=== PATIENT | female | born 1945 | race Caucasian/White ===

== ENCOUNTER 2021-09-17 15:18 | Inpatient (IN) ==
--- NOTE | 2021-09-17 15:37 | Emergency Department Note ---
Impression & Plan Flank Pain, Renal colic, Hydronephrosis, Hypokalemia ED Provider Note NAME: PRAVEEN WINKLER AGE: 76 SEX: F : 1945 ARRIVES VIA: Walk-In INFORMANT: Patient ED PROVIDER(S): Roger Long DO CHIEF COMPLAINT: flank pain with nausea and vomiting HPI: Patient is a 76-year-old female who presents ER for right flank pain. She notes this has been present for just about a week. Started last Sunday. Describes the pain is a 10 out of 10 and sharp stabbing associated with nausea and vomiting. She had a CT done which showed a 5 mm distal right ureteral stone several days ago. She was prescribed oxycodone. She notes the pain is so bad that she cannot keep anything down. She had previous stones before that had to be removed via surgery. Denies any fevers. No chest pain or shortness of breath. No dysuria urgency or frequency. No other exacerbating or remitting factors. ROS: See above HPI for pertinent positives & negatives. A total of 10 systems reviewed and were otherwise negative. PAST MEDICAL HISTORY:See Below PAST SURGICAL HISTORY:See Below FAMILY HISTORY:See Below SOCIAL HISTORY:See Below HOME MEDICATIONS:See Below ALLERGIES:See Below VITALS:See Below PHYSICAL EXAMINATION: GENERAL: Lying in bed moderate distress holding right side EYE EXAM: normal conjunctiva. OROPHARYNX: Dry mucous membranes NECK: supple, no nuchal rigidity, no adenopathy, non-tender LUNGS: Clear to auscultation. Normal chest wall mechanics HEART: no murmurs, S1 normal and S2 normal ABDOMEN: abdomen soft, non-tender, normo-active bowel sounds, no masses, no rebound or guarding. BACK: Back is symmetrical on inspection and there is no deformity, no midline tenderness, no CVA tenderness. UPPER EXTREMITIES: upper extremities are grossly normal. LOWER EXTREMITIES: No pitting edema. NEURO EXAM: Normal sensorium, cranial nerves II-XII grossly intact, normal spee ch, no gross weakness of arms, no gross weakness of legs. MEDICAL DECISION MAKING: Patient is a 76-year-old female who presents ER for above-stated complaint. IV was established blood was obtained. Labs show no significant leukocytosis or anemia. BMP with mild hypokalemia 3.2. LFTs bilirubin and lipase is unremarkable. UA with no whites but leuks and nitrites and +4 bacteria. Was clearly contaminated but with the known 5 mm stone patient was given a dose of Rocephin to be on the safe side. She was given IV morphine and Zofran. As this is her third visit and she is having worsening pain unable to keep anything down did elect discussed with hospitalist for further evaluation. KUB and ultrasound show worsening hydro and that the stone has likely not change positions. Discussed with Otto Graf for further evaluation. Triage Nursing notes reviewed. Limited review of prior medical records performed Vital Signs: reviewed and remarkable for no significant abnormalities Differential diagnosis: Differential diagnoses includes but is not limited to gastritis, peptic ulcer disease, GERD, gallbladder disease, pancreatitis, small bowel obstruction, acute coronary syndrome, pericarditis, ischemic bowel, irritable bowel disease, irritable bowel syndrome, appendicitis, diverticulitis, malignancy, hernia, urinary tract infection, torsion, perforation, trauma, infectious. ER treatment provided: See below Diagnostics interpreted by me: ECG: none Cardiac Monitoring: An order was placed for continuous cardiac monitoring. The monitor shows a rate of 92 with sinus rhythm. Laboratory studies: As stated above and show below. Imaging studies: Ultrasound shows worsening hydro- KUB shows stone has likely not change positions Consultation(s): Discussed with Otto Graf for further evaluation Procedures: none Critical Care: None Past Med/Surg History Medical History No pertinent past medical history Surgical History History of appendectomy Social History Smoking Status: Never smoker Preferred Language: Estonian Feels Safe at Home: Yes Allergies Allergies Allergy/AdvReac Type Severity Reaction Status Date / Time No Known Allergies Allergy Verified 09/17/21 15:50 Home Meds Home Medications Medication Instructions Recorded Confirmed ondansetron 4 mg disintegrating 4 mg PO Q8H PRN 09/17/21 09/17/21 tablet Previous Rx's Medication Instructions Recorded oxycodone 5 mg tablet 5 mg PO Q6H PRN #10 tab 09/16/21 Results & Data (ED) Vital Signs Vital Signs - 24 hr 09/17/21 15:21 09/17/21 16:08 09/17/21 16:34 Temperature 36.8 C Temperature Source Temporal Artery Scan Oral Pulse Rate 68 66 Pulse Rate from SpO2 Sensor 65 Respiratory Rate 18 19 Respiratory Effort / Characteristics Non-Labored Respiratory Depth Normal Blood Pressure 141/81 H Blood Pressure Mean 101 Pulse Oximetry 98 98 Oxygen Delivery Method Room Air Room Air Sepsis Recent Fever Within 48 Hours No Sepsis New/Unexplained Change in Mental Status No Sepsis Action Taken by Nursing No Action Required 09/17/21 17:00 Temperature Temperature Source Pulse Rate 70 Pulse Rate from SpO2 Sensor Respiratory Rate Respiratory Effort / Characteristics Respiratory Depth Blood Pressure Blood Pressure Mean Pulse Oximetry Oxygen Delivery Method Sepsis Recent Fever Within 48 Hours Sepsis New/Unexplained Change in Mental Status Sepsis Action Taken by Nursing Laboratory Data Result diagrams: 09/17/21 15:48 09/17/21 15:48 Lab Results 09/17/21 09/17/21 09/17/21 Range/Units 15:48 15:48 15:48 WBC 6.57 (4.8-10.8) K/uL RBC 4.23 (4.2-5.4) M/uL Hgb 13.0 (12.0-16.0) g/dL Hct 39.0 (37-47) % MCV 92.2 (80-100) fL MCH 30.7 (25-34) pg MCHC 33.3 (32-36) g/dL RDW Std Deviation 43.9 (36.4-46.3) fL RDW Coeff of So 13.2 (11.5-14.5) % Plt Count 186 (130-400) K/uL MPV 10.1 (7.4-10.4) fL Immature Gran % (Auto) 0.2 % Neut % (Auto) 73.1 % Lymph % (Auto) 18.1 % [place] % (Auto) 7.2 % Eos % (Auto) 1.1 % Baso % (Auto) 0.3 % Neut # (Auto) 4.81 (1.4-6.5) K/uL Lymph # (Auto) 1.19 L (1.2-3.4) K/uL [place] # (Auto) 0.47 (0.11-0.59) K/uL Eos # (Auto) 0.07 (0-0.5) K/uL Baso # (Auto) 0.02 (0-0.2) K/uL Immature Gran # (Auto) 0.01 (0.00-0.02) K/uL Sodium 140 (136-145) mmol/L Potassium 3.2 L (3.5-5.1) mmol/L Chloride 104 (98-107) mmol/L Carbon Dioxide 27 (21-32) mmol/L Anion Gap 9 (3-11) BUN 19 (6-23) mg/dl Creatinine 1.02 (0.6-1.2) mg/dl Est Cr Clr Drug Dosing 43.3 ml/min Est GFR ( Amer) 62.3 ml/min Est GFR (Non-Af Amer) 53.8 ml/min BUN/Creatinine Ratio 18.6 (10-20) Glucose 114 H (70-99(Fasting)) mg/dl Calcium 9.1 (8.5-10.1) mg/dl Total Bilirubin 0.6 (0.2-1.0) mg/dl AST 23 (13-39) U/L ALT 17 (7-52) U/L Alkaline Phosphatase 69 (34-104) U/L Total Protein 6.2 (6.0-8.3) gm/dl Albumin 3.9 (3.4-5.0) gm/dl Globulin 2.3 L (2.5-4.0) gm/dl Albumin/Globulin Ratio 1.7 (0.9-2) Lipase 37 (11-82) U/L Urine Color Yellow Urine Appearance Clear (Clear) Urine pH 7.0 (4.5-7.5) Ur Specific [place] 1.016 (1.000-1.030) Urine Protein Negative (Negative) Urine Glucose (UA) Negative (Negative) Urine Ketones Trace H (Negative) Urine Blood 3+ H (Negative) Urine Nitrite Positive A (Negative) Urine Bilirubin Negative (Negative) Urine Urobilinogen Negative (Negative) Ur Leukocyte Esterase 1+ H (Negative) Urine WBC (Auto) 1-5 (0-5) /hpf Urine RBC (Auto) >30 H (0-4) /hpf U Hyaline Cast (Auto) 1-5 (0-5) /lpf U Epithel Cells (Auto) 10-20 H (0-5) /lpf Urine Bacteria (Auto) 4+ H (Negative) Administered Medications Discontinued Medications Sodium Chloride (Nss 1000ml) 1,000 mls @ 999 mls/hr IV .Q1H1M ONE Stop: 09/17/21 16:38 Last Infusion: 09/17/21 17:15 Dose: 0 mls/hr Documented by: [id number] Admin: 09/17/21 15:58 Dose: 999 mls/hr Documented by: [id number] Ceftriaxone Sodium (Rocephin) 1,000 mg in 50 mls @ 100 mls/hr IV NOW STA Stop: 09/17/21 17:17 Last Infusion: 09/17/21 17:51 Dose: 0 mls/hr Documented by: [id number] Admin: 09/17/21 17:04 Dose: 100 mls/hr Documented by: [id number] Morphine Sulfate (Morphine Sulfate 10 Mg/Ml Carp/Vial) 6 mg IV NOW STA Stop: 09/17/21 16:00 Last Admin: 09/17/21 16:17 Dose: 6 mg Documented by: [id number] Ondansetron HCl (Ondansetron Inj 2 Mg/Ml 2 Ml Vial) 4 mg IV NOW STA Stop: 09/17/21 15:39 Last Admin: 09/17/21 15:57 Dose: 4 mg Documented by: [id number] Potassium Chloride (Potassium Chloride 10 Meq Tabcr) 40 meq PO NOW STA Stop: 09/17/21 17:06 Last Admin: 09/17/21 17:57 Dose: 40 meq Documented by: [id number] Imaging Data Radiologist's Impression: KUB X-Ray 09/17/21 15:37 KUB HISTORY: Follow up study in a patient with history of kidney stones stone COMPARISON: CT abdomen and pelvis 09/16/2021 FINDINGS: Nonobstructive bowel gas pattern. Right renal calculi again noted measuring up to 4 to 5 mm. Ill-defined 5 mm radiodensity of the right hemipelvis. Study limited secondary to obscuring bowel gas. No pneumoperitoneum or pneumatosis. No fracture. IMPRESSION: 1. 5 mm radiodensity of the right hemipelvis may correlate with unchanged po sitioning of the recently noted distal right ureteral calculus. Limited visualization of the pelvis secondary to overlying bowel gas. 2. Right nephrolithiasis. ACT 112: Negative or not required by law. The above report was generated using voice recognition software. It may contain grammatical, syntax or spelling errors. Electronically signed by: Reagan Ng M.D. 09/17/2021 4:53 PM Renal Ultrasound 09/17/21 15:37 US renal/blad retro comp HISTORY: 76 years-old Female kid stone follow-up study in a patient with kidney stones. COMPARISON: CT abdomen and pelvis 09/16/2021 TECHNIQUE: Multiple real-time images of the kidneys and urinary bladder were obtained assessing grayscale appearance and color flow FINDINGS: Right kidney measures 9.7 cm in length. Mild to moderate right-sided hydroureteronephrosis. Nonobstructing calculi of the right kidney measure up to 4 mm. The left kidney measures 9.0 cm in length. No left-sided renal calculi or hydronephrosis. Unremarkable urinary bladder. Only the left ureteral jet identified. IMPRESSION: 1. Mild to moderate right-sided hydroureteronephrosis has likely progressed from yesterday's study. 2. Nonobstructing right nephrolithiasis. 3. Unremarkable sonographic appearance of the left kidney. ACT 112: Negative or not required by law. The above report was generated using voice recognition software. It may contain grammatical, syntax or spelling errors. Electronically signed by: Reagan Ng M.D. 09/17/2021 5:10 PM Discharge Plan Visit Data Chief Complaint: Kidney Stone Stated Complaint: KIDNEY STONE ED Provider: Roger Long Discharge Problem: Flank Pain, Renal colic, Hydronephrosis, Hypokalemia Patient Disposition: Admitted As Inpatient Discharge Instructions Interventions: ED Discharge Assessment Last Done: 09/17/21 18:26 Discharge Problem: Hydronephrosis Qualifiers: Hydronephrosis type: unspecified Qualified Code(s): N13.30 - Unspecified hydronephrosis
[2021-09-17] MEDS ORDERED: ONDANSETRON INJ 2 MG/ML 2 ML VIAL IV STA (15:38)
[2021-09-17] MEDS ORDERED: SODIUM CHLORIDE 0.9% 1000ML 1,000 ML IV ONE (15:38)
[2021-09-17] MEDS ORDERED: MoRPHine SULFATE 10 MG/ML CARP/VIAL IV STA (15:59)
[2021-09-17 16:02] LABS: Basophils # (auto) 0.02 K/uL (0-0.2); Basophils % (auto) 0.3 %; Eosinophils # (auto) 0.07 K/uL (0-0.5); Eosinophils % (auto) 1.1 %; Immature Granulocytes # (auto) 0.01 K/uL (0.00-0.02); Immature Granulocytes % (auto) 0.2 %; Lymphocytes # (auto) 1.19 K/uL (1.2-3.4); Lymphocytes % (auto) 18.1 %; Mean Corpuscular Hemoglobin 30.7 pg (25-34); Mean Corpuscular Hgb Conc 33.3 g/dL (32-36); Mean Corpuscular Volume 92.2 fL (80-100); Mean Platelet Volume 10.1 fL (7.4-10.4); Monocytes # (auto) 0.47 K/uL (0.11-0.59); Monocytes % (auto) 7.2 %; Neutrophils # (auto) 4.81 K/uL (1.4-6.5); Neutrophils % (auto) 73.1 %; Platelet Count 186 K/uL (130-400); RDW Coefficient of Variation 13.2 % (11.5-14.5); RDW Standard Deviation 43.9 fL (36.4-46.3); Red Blood Count 4.23 M/uL (4.2-5.4); White Blood Count 6.57 K/uL (4.8-10.8)
[2021-09-17 16:14] LABS: Appearance Urine Clear (Clear); Bacteria Urine Automated 4+ (Negative); Bilirubin Urine Negative (Negative); Blood Urine 3+ (Negative); Color Urine Yellow; Glucose Urine UA Negative (Negative); Ketones Urine Trace (Negative); Leukocyte Esterase Urine 1+ (Negative); Nitrite Urine Positive (Negative); Protein Urine Negative (Negative); RBC Urine Automated >30 /hpf (0-4); Specific Gravity Urine 1.016 (1.000-1.030); Urobilinogen Urine Negative (Negative)
[2021-09-17 16:23] LABS: Albumin Globulin Ratio 1.7 (0.9-2); Albumin Level 3.9 gm/dl (3.4-5.0); BUN Creatinine Ratio 18.6 (10-20); Bilirubin,Total 0.6 mg/dl (0.2-1.0); Calcium 9.1 mg/dl (8.5-10.1); Creatinine Clr Calc Pharmacy 43.3 ml/min; Est GFR (African American) 62.3 ml/min; Est GFR (Non-African American) 53.8 ml/min; Globulin 2.3 gm/dl (2.5-4.0); Potassium 3.2 mmol/L (3.5-5.1); Total Protein 6.2 gm/dl (6.0-8.3)
[2021-09-17] MEDS ORDERED: cefTRIAXone SODIUM 1,000 MG/50 ML BAG IV STA (16:48)
--- NOTE | 2021-09-17 16:55 | XRay Report ---
KUB HISTORY: Follow up study in a patient with history of kidney stones stone COMPARISON: CT abdomen and pelvis 09/16/2021 FINDINGS: Nonobstructive bowel gas pattern. Right renal calculi again noted measuring up to 4 to 5 mm . Ill-defined 5 mm radiodensity of the right hemipelvis. Study limited secondary to obscuring bowel gas. No pneumoperitoneum or pneumatosis. No fracture. IMPRESSION: 1. 5 mm radiodensity of the right hemipelvis may correlate with unchanged positioning of the recently noted distal right ureteral calculus. Limited visualization of the pelvis secondary to overlying bow el gas. 2. Right nephrolithiasis. ACT 112: Negative or not required by law. The above report was generated using voice recognition software. It may contain grammatical, syntax o r spelling errors. Electronically signed by: Reagan Ng M.D. 09/17/2021 4:53 PM
[2021-09-17] MEDS ORDERED: POTASSIUM CHLORIDE 10 MEQ TABCR PO STA (17:05)
[2021-09-17] MEDS ORDERED: PROMETHAZINE HCL 12.5 MG in SODIUM CHLORIDE 0.9% 50 ML IV PRN (17:05)
--- NOTE | 2021-09-17 17:12 | Ultrasound Report ---
US renal/blad retro comp HISTORY: 76 years-old Female kid stone follow-up study in a patient with kidney stones. COMPARISON: CT abdomen and pelvis 09/16/2021 TECHNIQUE: Multiple real-time images of the kidneys and urinary bladder were obtained assessing jayjay thor appearance and color flow FINDINGS: Right kidney measures 9.7 cm in length. Mild to moderate right-sided hydroureteronephrosis. Nonobstru cting calculi of the right kidney measure up to 4 mm. The left kidney measures 9.0 cm in length. No left-sided renal calculi or hydronephrosis. Unremarkable urinary bladder. Only the left ureteral jet identified. IMPRESSION: 1. Mild to moderate right-sided hydroureteronephrosis has likely progressed from yesterday's study. 2. Nonobstructing right nephrolithiasis. 3. Unremarkable sonographic appearance of the left kidney. ACT 112: Negative or not required by law. The above report was generated using voice recognition software. It may contain grammatical, syntax o r spelling errors. Electronically signed by: Reagan Ng M.D. 09/17/2021 5:10 PM
--- NOTE | 2021-09-17 17:21 | History & Physical Report ---
Date of Service September 17, 2021 Assessment & Plan (1) Right nephrolithiasis: Plan: -Nonobstructing right calculi measuring up to 4 mm with mild to moderate right- sided hydroureteronephrosis. -Pain management with Tylenol, Toradol, morphine. -Zofran, Phenergan for nausea/vomiting. -LRs at 80 cc/hr. -Strain urine to monitor for passage of stone. -Urology consulted, appreciate recommendations. (2) UTI (urinary tract infection): Plan: -Mild dysuria, increased frequency over the past day with UA positive for nitrates, leukoesterase, bacteria. -Ceftriaxone 1 g daily. -Urine culture ordered, pending. (3) Hypokalemia: Plan: -In setting of ongoing vomiting and diarrhea this past week due to pain from kidney stone. -3.4 in ED, will replete, recheck in AM. Plan: [facility] -SCDs for DVT PPx. -Full code. History of Present Illness Chief Complaint: Right flank pain Primary Care Provider: Eduardo Conti Patient is a 76-year-old female with a past medical history of kidney stones requiring surgical intervention who presents today with right flank pain. Symptom onset began in the middle of the night Sunday, she began experiencing nausea/vomiting/diarrhea. She presented to the ED, responded well to Zofran at that time and was discharged home for presumed gastroenteritis. She presented again yesterday with mild low back pain, dysuria, and increased urinary urgency/frequency. She was found to have a 5 mm distal right ureteral stone at the time with hydronephrosis. With IVF and Zofran, she felt better and was discharged with oxycodone. This morning, her back pain became worse, was more specific noted to be right flank pain. She presents to the ED for further evaluation. Otherwise well complaints, no fevers/chills, chest pain, palpitations, shortness of breath, hematemesis, melena, hematochezia, hematuria, anuria. In ED, she slightly hypertensive, otherwise vital signs within normal limits and stable. Labs significant for UA positive for blood, nitrite, leukoesterase, bacteria. K+ 3.4. KUB x-ray shows radiodensity of the right hemipelvis, renal ultrasound shows nonobstructing calculi of the right kidney measuring up to 4 mm and mild to moderate right-sided hydroureteronephrosis which has progressed since yesterday's study. Allergies Allergy/AdvReac Type Severity Reaction Status Date / Time No Known Allergies Allergy Verified 09/17/21 15:50 Home Medications Medication Instructions Recorded Confirmed Type oxycodone 5 mg tablet 5 mg PO Q6H PRN #10 tab 09/16/21 09/17/21 Rx ondansetron 4 mg disintegrating 4 mg PO Q8H PRN 09/17/21 09/17/21 History tablet Past Med/Surg History Medical History No pertinent past medical history Surgical History History of appendectomy Social History Smoking Status: Never smoker Preferred Language: Spanish Feels Safe at Home: Yes Review of Systems Review of Systems: Constitutional: No fever/chills, myalgias, weakness, night Eyes: No diplopia, no worsening or blurred vision ENT: normal hearing, no trouble swallowing Respiratory: No cough, sputum, dyspnea at rest or on exertion Cardiovascular: No chest pain, tightness or palpitations Abdomen: Abdominal pain, right flank pain, nausea with vomiting, diarrhea intermittently over the past week; no hematemesis, medic easy, melena Musculoskeletal: No joint pain, calf pain, swelling Neurologic: No weakness, numbness/tingling, or balance problems Psychiatric: No anxiety or depression Skin: No rash or itch Physical Exam Physical Exam: General: awake, alert, no apparent distress Head: Normocephalic, atraumatic ENT: PERRL, EOMI, no pharyngeal exudate, mucous membranes moist Chest: Clear to auscultation, on room air, no adventitious breath sounds Cardiac: Regular rate and rhythm, no murmur, no JVD, normal peripheral pulses, good capillary refill Abdominal: NABS x 4 quadrants, soft, nontender to palpation, no rebound, guarding or tenderness Extremities: Normal inspection, no peripheral edema or erythema, calfs nontender to palpation Psych: Normal mood and affect Neuro: AAO x 3, strength intact bilaterally and rated 5/5, no motor deficits, speech is clear, no peripheral sensory deficits Skin: no rash or erythema Results & Data Results & Data ([facility]) Vital Signs (Past 12 Hours) Vital Signs Temp Pulse Resp BP Pulse Ox 09/17/21 15:21 36.8 C 68 18 141/81 H 98 Laboratory Results Abnormal lab results 09/17/21 09/17/21 09/17/21 Range/Units 15:48 15:48 15:48 Lymph # (Auto) 1.19 L (1.2-3.4) K/uL Potassium 3.2 L (3.5-5.1) mmol/L Glucose 114 H (70-99(Fasting)) mg/dl Globulin 2.3 L (2.5-4.0) gm/dl Urine Ketones Trace H (Negative) Urine Blood 3+ H (Negative) Urine Nitrite Positive A (Negative) Ur Leukocyte Esterase 1+ H (Negative) Urine RBC (Auto) >30 H (0-4) /hpf U Epithel Cells (Auto) 10-20 H (0-5) /lpf Urine Bacteria (Auto) 4+ H (Negative) Diagnostic Findings KUB X-Ray 09/17/21 15:37 KUB HISTORY: Follow up study in a patient with history of kidney stones stone COMPARISON: CT abdomen and pelvis 09/16/2021 FINDINGS: Nonobstructive bowel gas pattern. Right renal calculi again noted measuring up to 4 to 5 mm. Ill-defined 5 mm radiodensity of the right hemipelvis. Study limited secondary to obscuring bowel gas. No pneumoperitoneum or pneumatosis. No fracture. IMPRESSION: 1. 5 mm radiodensity of the right hemipelvis may correlate with unchanged positioning of the recently noted distal right ureteral calculus. Limited visua lization of the pelvis secondary to overlying bowel gas. 2. Right nephrolithiasis. ACT 112: Negative or not required by law. The above report was generated using voice recognition software. It may contain grammatical, syntax or spelling errors. Electronically signed by: Reagan Ng M.D. 09/17/2021 4:53 PM Renal Ultrasound 09/17/21 15:37 US renal/blad retro comp HISTORY: 76 years-old Female kid stone follow-up study in a patient with kidney stones. COMPARISON: CT abdomen and pelvis 09/16/2021 TECHNIQUE: Multiple real-time images of the kidneys and urinary bladder were obtained assessing grayscale appearance and color flow FINDINGS: Right kidney measures 9.7 cm in length. Mild to moderate right-sided hydroureteronephrosis. Nonobstructing calculi of the right kidney measure up to 4 mm. The left kidney measures 9.0 cm in length. No left-sided renal calculi or hydronephrosis. Unremarkable urinary bladder. Only the left ureteral jet identified. IMPRESSION: 1. Mild to moderate right-sided hydroureteronephrosis has likely progressed from yesterday's study. 2. Nonobstructing right nephrolithiasis. 3. Unremarkable sonographic appearance of the left kidney. Code Status & VTE Plan Code Status Full Code. VTE Prophylaxis Plan VTE Prophylaxis will be ordered: Yes Supervising Physician Co-Signing Physician Notes I supervised Danna Tran PA-C on the care of this patient. I interviewed and examined the patient independently of her. The plan is as written in her note except for any following changes/exceptions: None Seen in the ER. Still with some discomfort. Will provide pain control overnight and have urology see her tomorrow. NPO @ midnight. PG Care Time/CCT Total # of Minutes Spent Total Time Spent with Patient: Total time spent is greater than 50% in coordination of care (as documented) at patient's floor/unit and/or counseling patient: Coding Level of Care Code 65934 Initial Inpt Care Lvl 2 Diagnoses Right nephrolithiasis N20.0 Hypokalemia E87.6 UTI (urinary tract infection) N39.0
[2021-09-17] MEDS ORDERED: ONDANSETRON INJ 2 MG/ML 2 ML VIAL IV PRN (18:38)
[2021-09-17] MEDS ORDERED: POLYETHYLENE (MIRALAX) 17 GM PACK PO PRN (18:38)
[2021-09-17] MEDS ORDERED: MoRPHine SULFATE 2 MG/ML CARP IV PRN (18:38)
[2021-09-17] MEDS ORDERED: ACETAMINOPHEN 325 MG TAB PO PRN (18:38)
[2021-09-17] MEDS: LACTATED RINGER'S 1,000 ML IV SCH (18:57)
[2021-09-18] MEDS: LACTATED RINGER'S 1,000 ML IV SCH ×2 (06:07→19:40)
[2021-09-18 06:10] LABS: Basophils # (auto) 0.01 K/uL (0-0.2); Basophils % (auto) 0.2 %; Eosinophils # (auto) 0.12 K/uL (0-0.5); Eosinophils % (auto) 2.1 %; Hemoglobin 12.4 g/dL (12.0-16.0); Immature Granulocytes # (auto) 0.01 K/uL (0.00-0.02); Immature Granulocytes % (auto) 0.2 %; Lymphocytes # (auto) 1.67 K/uL (1.2-3.4); Lymphocytes % (auto) 28.7 %; Mean Corpuscular Hemoglobin 30.8 pg (25-34); Mean Corpuscular Hgb Conc 33.5 g/dL (32-36); Mean Corpuscular Volume 91.8 fL (80-100); Monocytes # (auto) 0.47 K/uL (0.11-0.59); Monocytes % (auto) 8.1 %; Neutrophils # (auto) 3.54 K/uL (1.4-6.5); Neutrophils % (auto) 60.7 %; Platelet Count 181 K/uL (130-400); RDW Coefficient of Variation 13.2 % (11.5-14.5); RDW Standard Deviation 44.7 fL (36.4-46.3); Red Blood Count 4.03 M/uL (4.2-5.4); White Blood Count 5.82 K/uL (4.8-10.8)
[2021-09-18 06:28] LABS: BUN Creatinine Ratio 15.9 (10-20); Calcium 8.6 mg/dl (8.5-10.1); Creatinine Clr Calc Pharmacy 53.8 ml/min; Est GFR (African American) 81.1 ml/min; Magnesium 1.9 mg/dl (1.7-2.4); Potassium 3.9 mmol/L (3.5-5.1)
--- NOTE | 2021-09-18 07:34 | Urology Consultation ---
Date of Consultation September 18, 2021 Assessment & Plan (1) Right nephrolithiasis: (2) UTI (urinary tract infection): 76-year-old female with a right mid to distal ureteral calculus and concerns for urinary tract infection. Due to multiple bounce backs and concern for infection, discussed with patient that she would require cystoscopy with right ureteral stent placement. Booked for cystoscopy, right retrograde pyelogram, right ureteral stent placement Risks and benefits discussed including but not limited to pain, bleeding, infection, damage to ureters, inability to place stent with need for transfer for nephrostomy tube, and need for further procedures. Consent signed. Discussed that she may wake up with a catheter Continue antibiotics Remain n.p.o. until after procedure Discussed with patient that she would likely need several weeks of antibiotics and that I would see her in clinic to discuss definitive stone treatment History of Present Illness Reason for Consultation: Right urolithiasis Attending Physician: Fox Graf MD History of Present Illness 76-year-old female with a 5 mm right distal ureteral calculus. She is presented emergency department on 09/12, 09/16 and then 09/17/2021 with pain. I independently reviewed the CT scan from 09/16/2021 which showed mild right hydronephrosis and some nonobstructing right renal calculi and a roughly 5 mm mid to right distal ureteral calculus. There are no stones on the left side. A KUB and a renal ultrasound from 09/17/2021 showed the stone likely in the right ureter as well as mild right hydronephrosis, indicating she has not passed the stone. Labs on admission showed a white blood cell count of 6.57, hemoglobin of 13, creatinine of 1.02, and a urinalysis that was positive for nitrites, 1+ leukocyte esterase, 1-5 WBCs, 30+ RBCs and 4+ bacteria. She was initiated on ceftriaxone. Cultures are pending. Lab today show white blood cell count 5.8, and a creatinine of 0.82. She reports feeling better today. She denies any fevers. She has been hemodynamically stable. She does report having stones in the past and has had a lithotripsy as well as a stent in place. She has been appropriately n.p.o. Allergies Allergy/AdvReac Type Severity Reaction Status Date / Time No Known Allergies Allergy Verified 09/17/21 15:50 Home Medications Medication Instructions Recorded Confirmed Type oxycodone 5 mg tablet 5 mg PO Q6H PRN #10 tab 09/16/21 09/17/21 Rx ondansetron 4 mg disintegrating 4 mg PO Q8H PRN 09/17/21 09/17/21 History tablet Patient History Medical History No pertinent past medical history Surgical History History of appendectomy Social History Smoking Status: Never smoker Hx Alcohol Use: Yes Hx Substance Use: No Preferred Language: [place] Zealander Communication Ability: Effective Siphon Operator Required: No Beliefs That Will Affect Care: None Current Living Situation: Spouse Feels Safe at Home: Yes Assistive Devices: Glasses Review of Systems Review of Systems: 14 point review of systems negative outside of what is listed above in HPI Physical Exam Physical Exam: General: Alert and oriented, no acute distress HEENT: Normocephalic, mucous membranes moist Pulmonary: Nonlabored respirations Abdomen: Nondistended Extremities: Moves all 4 spontaneously Neuro: No gross deficits Skin: Warm, dry, no rashes noted Results & Data ([facility]) Vital Signs (Past 12 Hours) Vital Signs Temp Pulse Resp BP Pulse Ox 09/17/21 22:27 37.0 C 62 18 128/64 96 PG Care Time/CCT Total # of Minutes Spent Total Time Spent with Patient: Total time spent is greater than 50% in coordination of care (as documented) at patient's floor/unit and/or counseling patient: [place] [address] Initial Inpt Care Lvl 3 Patient Type New Diagnoses Right nephrolithiasis N20.0 UTI (urinary tract infection) N39.0
--- NOTE | 2021-09-18 08:01 | Anesthesiology Consultation ---
Date of Service September 18, 2021 Assessment & Plan Chart Review Chart Review: Acceptable Risk for Surgery and Patient NOT seen in Pre Admission Testing Consults Requested none ASA ASA3 History Surgery Operation Date: 09/18/21 13:00 Proposed Procedures p Cystoscopy(Right) - Estevan Lucas MD s Ureteral Stent Insertion/Removal(Right) - Estevan Lucas MD Height/Weight Height: 5 ft 6 in Weight: 57.5 kg Allergies Allergy/AdvReac Type Severity Reaction Status Date / Time No Known Allergies Allergy Verified 09/17/21 15:50 Medications Home Medications Medication Instructions Recorded Confirmed Last Taken oxycodone 5 mg tablet 5 mg PO Q6H PRN #10 tab 09/16/21 09/17/21 09/17/21 13:00 ondansetron 4 mg disintegrating 4 mg PO Q8H PRN 09/17/21 09/17/21 Unknown tablet Active Medications Generic Name Dose Route Start Last Admin Trade Name Freq PRN Reason Stop Dose Admin Lactated Ringer's 1,000 mls @ 80 mls/hr 09/17/21 18:38 09/18/21 06:07 Lr IV 10/17/21 18:37 80 mls/hr .[id number] JOAHNNY Administration Past Medical History Medical History No pertinent past medical history Exercise / Class Metabolic Activity II 4-5 Yardwork/Stairs/Walk up hill Past Surgical History Surgical History History of appendectomy Past Anesthesia History No Hx of Anesthesia Complications and No Family Hx of Anesthesia Complications History of PONV No Hx of PONV and No Hx of Motion Sickness Social History Smoking Status: Never smoker Hx Alcohol Use: Yes alcohol intake frequency: holidays/special occasions only Hx Substance Use: No Physical Exam Vital Signs Last Vital Signs Temp 36.6 C 09/18/21 07:59 Pulse 68 09/18/21 07:59 Resp 16 09/18/21 07:59 BP 137/116 H 09/18/21 07:59 Pulse Ox 97 09/18/21 07:59 Testing Laboratory Results 09/18/21 05:15 09/18/21 05:15 Urine Color Yellow 09/17/21 15:48 Urine Appearance Clear (Clear) 09/17/21 15:48 Urine pH 7.0 (4.5-7.5) 09/17/21 15:48 Ur Specific [place] 1.016 (1.000-1.030) 09/17/21 15:48 Urine Protein Negative (Negative) 09/17/21 15:48 Urine Glucose (UA) Negative (Negative) 09/17/21 15:48 Urine Ketones Trace (Negative) H 09/17/21 15:48 Urine Nitrite Positive (Negative) A 09/17/21 15:48 Ur Leukocyte Esterase 1+ (Negative) H 09/17/21 15:48 Urine WBC (Auto) 1-5 /hpf (0-5) 09/17/21 15:48 Urine RBC (Auto) >30 /hpf (0-4) H 09/17/21 15:48 U Hyaline Cast (Auto) 1-5 /lpf (0-5) 09/17/21 15:48 U Epithel Cells (Auto) 10-20 /lpf (0-5) H 09/17/21 15:48 Urine Bacteria (Auto) 4+ (Negative) H 09/17/21 15:48 09/17/21 15:48 Urine Culture - Preliminary Urine,Clean Catch Gram negative bacilli Electrocardiogram Date: 06/27/21 Findings: + NSR @ (at 68)
[2021-09-18] MEDS ORDERED: fentaNYL citrate 100 MCG/2 ML VIAL ONE (09:28)
[2021-09-18] MEDS ORDERED: PROPOFOL IV EMULSION 10 MG/ML 20 ML VIAL IV ONE (09:28)
[2021-09-18] MEDS ORDERED: LIDOCAINE 2% 2 ML VIAL/AMP(20MG/ML) INFIL ONE (09:28)
[2021-09-18] MEDS ORDERED: MIDAZOLAM HCL 1 MG/ML 2ML VIAL ONE (09:28)
[2021-09-18] MEDS ORDERED: NALOXONE HCL 0.4 MG/1 ML VIAL/CARP IV PRN (09:37)
[2021-09-18] MEDS ORDERED: fentaNYL citrate 100 MCG/2 ML VIAL IV PRN (09:37)
[2021-09-18] MEDS ORDERED: FLUMAZENIL 0.1 MG/1 ML 10 ML VIAL IV PRN (09:37)
[2021-09-18] MEDS ORDERED: PROMETHAZINE HCL 12.5 MG in SODIUM CHLORIDE 0.9% 50 ML IV PRN (09:37)
[2021-09-18] MEDS ORDERED: ePHEDrine sulfate 50 MG/ML AMP IV PRN (09:37)
[2021-09-18] MEDS ORDERED: LABETALOL HCL IV 5 MG/ML 20ML IV PRN (09:37)
[2021-09-18] MEDS ORDERED: ONDANSETRON INJ 2 MG/ML 2 ML VIAL IV PRN (09:37)
[2021-09-18] MEDS ORDERED: ATROPINE SULFATE 0.1 MG/ML 10ML SYR IV PRN (09:37)
[2021-09-18] MEDS ORDERED: DIATRIZOATE MEGLUMINE 30% 100ML VIAL INSTIL PRN (09:44)
--- NOTE | 2021-09-18 10:07 | Post Operative Brief Note ---
PG Immediate Post Op with CF Date of Surgery September 18, 2021 Pre & Post Diagnosis Operation Date: 09/18/21 13:00 Pre-Op Diagnosis: Kidney stone Post-Op Diagnosis: Kidney stone I identified the patient and participated in the time-out.: Yes Procedure Operation Date: 09/18/21 13:00 Actual Procedures p Cystoscopy(Right) - Estevan Lucas MD Right retrograde pyelogram s Right Ureteral Stent Insertion(Right) - Estevan Lucas MD Surgeon Estevan Lucas MD Texturing Machine Fixer None Estimated Blood Loss 0 Findings See Below 1. Mild right hydro 2. Stent in appropriate position Drains Other (6x24 R stent ) Anesthesia Type MAC Complications None Disposition Accompanied Patient To Recovery: No Disposition: Recovery Room
--- NOTE | 2021-09-18 10:15 | Operative Report ---
PG Post Operative Report Pre & Post Diagnosis Operation Date: 09/18/21 13:00 Pre-Op Diagnosis: Kidney stone Post-Op Diagnosis: Kidney stone I identified the patient and participated in the time-out.: Yes Procedure Operation Date: 09/18/21 13:00 Actual Procedures p Cystoscopy(Right) - Estevan Lucas MD Right retrograde pyelogram with radiographic interpretation s Right Ureteral Stent Insertion(Right) - Estevan Lucas MD Surgeon Estevan Lucas MD Material Manager None Estimated Blood Loss 0 Findings See Below 1. Right retrograde pyelogram showed mild hydronephrosis 2. Somewhat tortuous right proximal ureter 3. Stent in appropriate position Specimens None Drains 6 Q[place] by 24 cm right ureteral stent Anesthesia Type MAC Complications None Disposition Accompanied Patient To Recovery: No Disposition: Recovery Room Indications 76-year-old female with a right mid to distal ureteral calculus who is presented to the hospital 3 times over the past several days. She was most recently admitted and her urinalysis was concerning for infection. Fortunately, she was hemodynamically stable and afebrile. Taken to the OR for cystoscopy with right ureteral stent placement due to intractable pain and concern for infection. Description of Procedure After informed consent was obtained, the patient was transported operative suite. MAC anesthesia was induced. The patient was placed in dorsolithotomy position prepped and draped in a sterile fashion. They received preoperative ceftriaxone for antibiotic prophylaxis. An appropriate surgical timeout was performed. A 22 Q[place] rigid scope was inserted per urethra into the bladder. [place] cystoscopy revealed no stones or lesions. I turned my attention the right ureteral orifice and intubated this with a 5 Q[place]ari open-ended catheter. A right retrograde pyelogram was shot which showed mild hydronephrosis. A sensor wire was advanced into the kidney and confirmed fluoroscopically. A 6 [place] by 24 cm right ureteral stent was deployed with a good proximal coil in the renal pelvis and a good distal coil noted in the bladder, confirmed fluoroscopically and under direct visualization, respectively. The bladder was emptied and the scope was removed. This concluded the end of the case. All counts were correct at the end of the case. I was present, scrubbed, and actively participated for the entirety of the procedure. I attest to the content of the Intraoperative Record and any orders documented therein. Any exceptions are noted below.
--- NOTE | 2021-09-18 10:54 | Anesthesiology Progress Note ---
Date of Service September 18, 2021 Anesthesia Post Procedure Vital Signs Vital Signs: Temp Pulse Pulse Pulse Resp BP BP 09/18/21 10:35 36.6 C 59 L 18 154/77 H 09/18/21 10:25 60 15 144/76 H 09/18/21 10:15 36.4 C L 64 16 139/73 09/18/21 09:05 67 16 151/83 H 09/18/21 07:59 36.6 C 68 16 137/116 H 09/17/21 22:27 37.0 C 62 18 128/64 09/17/21 18:36 36.8 C 66 16 180/74 H 09/17/21 18:19 147/73 H 09/17/21 18:00 69 18 09/17/21 17:30 75 21 09/17/21 17:00 70 09/17/21 16:34 66 19 09/17/21 15:21 36.8 C 68 18 141/81 H Pulse Ox 09/18/21 10:35 96 09/18/21 10:25 96 09/18/21 10:15 97 09/18/21 09:05 97 09/18/21 07:59 97 09/17/21 22:27 96 09/17/21 18:36 98 09/17/21 18:19 09/17/21 18:00 97 09/17/21 17:30 99 09/17/21 17:00 09/17/21 16:34 98 09/17/21 15:21 98 Pain Intensity Flank: Pain Intensity: 0 Transfer of Care Handoff Completed per policy Notes Mental Status: alert / awake / arousable Patient Amnestic to Procedure: Yes Nausea / Vomiting: adequately controlled Pain: adequately controlled Airway Patency, RR, SpO2: stable & adequate BP & HR: stable & adequate Hydration State: stable & adequate Anesthetic Complications: no major complications apparent
--- NOTE | 2021-09-18 11:08 | Fluoroscopy Report ---
FL retrograde includes kub CLINICAL HISTORY: RT SIDE STONE COMPARISON STUDY: CT of the abdomen and pelvis September 16, 2021. Renal ultrasound KUB September 17, 2021. FLUOROSCOPY TIME: 16.2 seconds. FLUOROSCOPIC IMAGES: 3 FINDINGS: Fluoroscopy was provided during right retrograde exam with placement of a right ureteral st ent. Proximal aspect of stent projects over an upper pole calyx. IMPRESSION: Fluoroscopy provided during right retrograde exam with placement of a right ureteral hi nt. ACT 112: Negative or not required by law. Electronically signed by: Bg Watkins M.D. 09/18/2021 11:07 AM
--- NOTE | 2021-09-18 12:17 | Hospitalist Progress Note ---
Date of Service September 18, 2021 Assessment & Plan (1) Right nephrolithiasis: Plan: Nonobstructing right calculi measuring up to 4 mm with mild to moderate right- sided hydroureteronephrosis. - Pain management with Tylenol, Toradol, morphine. - Zofran, Phenergan for nausea/vomiting. - Urology consulted, appreciate recommendations -> Plan for stent today. Discharge tomorrow with o/p f/u. (2) UTI (urinary tract infection): Plan: Mild dysuria, increased frequency over the past day with UA positive for nitrates, leukoesterase, bacteria. - Ceftriaxone 1 g daily. - Urine culture ordered, with Gram(-) bacilli at this time. Admission and Anticipated Discharge Date Admission Date: September 17, 2021 Subjective Doing well overall today. Still with some pain. Is NPO with plans to have stent today with urology. No fevers/chills. Reports no chest pain, shortness of breath, abdominal pain, nausea, or vomiting. Physical Exam Constitutional: WD/WN, vitals as above Eyes: EOM intact bilaterally; no conjunctival abnormality ENMT: external ear and nose normal, oropharynx normal Neck: trachea midline, no thyromegaly normal visual inspection Respiratory: normal respiratory effort, lungs clear to auscultation no respiratory distress Cardiovascular: RRR, no murmur, no edema Gastrointestinal (Abdomen): Inspection/Auscultation: abdomen normal to inspection; abdomen not distended Musculoskeletal: no cyanosis or clubbing, extremities motor strength 5/5 Skin: no rashes, warm and dry Neurologic: moves all extremities and awake Psychiatric: Orientation: alert, oriented to person and cooperative Results & Data Results & Data ([facility]) Vital Signs (Past 12 Hours) Vital Signs Temp Pulse Pulse Resp BP BP Pulse Ox 09/18/21 11:32 36.8 C 61 16 167/83 H 96 09/18/21 11:12 173/84 H 172/79 H 09/18/21 11:05 36.7 C 60 16 165/82 H 97 09/18/21 10:35 36.6 C 59 L 18 154/77 H 96 09/18/21 10:25 60 15 144/76 H 96 09/18/21 10:15 36.4 C L 64 16 139/73 97 09/18/21 09:05 67 16 151/83 H 97 09/18/21 07:59 36.6 C 68 16 137/116 H 97 PG Care Time/CCT Total # of Minutes Spent Total Time Spent with Patient: Total time spent is greater than 50% in coordination of care (as documented) at patient's floor/unit and/or counseling patient: Coding Level of Care Code 54037 Subseq Hosp Care Lvl 2 Diagnoses Right nephrolithiasis N20.0 UTI (urinary tract infection) N39.0
[2021-09-18] MEDS: KETOROLAC TROMETHAMINE 15 MG/ML VIAL IV PRN (13:12)
[2021-09-18] MEDS: cefTRIAXone SODIUM 1,000 MG in DEXTROSE 5% 50 ML IV SCH (16:31)
[2021-09-19] MEDS: LACTATED RINGER'S 1,000 ML IV SCH (02:09)
[2021-09-19 06:04] LABS: Hematocrit (blood only) 37.8 % (37-47); Hemoglobin 12.4 g/dL (12.0-16.0); Mean Corpuscular Hemoglobin 30.2 pg (25-34); Mean Corpuscular Hgb Conc 32.8 g/dL (32-36); Mean Platelet Volume 10.2 fL (7.4-10.4); Platelet Count 175 K/uL (130-400); RDW Coefficient of Variation 13.2 % (11.5-14.5); RDW Standard Deviation 44.2 fL (36.4-46.3); Red Blood Count 4.11 M/uL (4.2-5.4)
[2021-09-19 06:20] LABS: BUN Creatinine Ratio 16.3 (10-20); Calcium 8.6 mg/dl (8.5-10.1); Creatinine Clr Calc Pharmacy 55.2 ml/min; Est GFR (African American) 83.6 ml/min; Est GFR (Non-African American) 72.1 ml/min; Potassium 3.9 mmol/L (3.5-5.1)
[2021-09-19] MEDS: KETOROLAC TROMETHAMINE 15 MG/ML VIAL IV PRN (06:34)
--- NOTE | 2021-09-19 08:20 | Urology Progress Note ---
Date of Service September 19, 2021 Assessment & Plan (1) Right nephrolithiasis: (2) UTI (urinary tract infection): (3) S/P ureteral stent placement: Plan: 76-year-old female with a right mid to distal ureteral calculus and concerns for urinary tract infection. - Pt POD#1 s/p cystoscopy and right ureteral stent placement with Dr. Lucas. - Doing well, progressing as expected. - Afebrile, lab work reviewed - creatinine 0.80, WBC 4.60. - Tolerating right ureteral stent with minimal bother. - Okay to d/c from perspective when medically stable. - Continue supportive care, antibiotics, and management per primary service. - Recommend d/c with course of PO antibiotics, Tamsulosin, prn Pyridium and prn pain medication for stent management. - Expected clinical course reviewed, all questions answered. - Will arrange outpatient follow-up with our service to discuss definitive stone treatment. - will sign off, please contact us for any additional questions/concerns. Admission and Anticipated Discharge Date Admission Date: September 17, 2021 Subjective Patient seen and examined at bedside this AM. She is awake, alert and sitting up in bed. No acute issues overnight. Notes mild right flank discomfort. Voiding spontaneously, mild dysuria and hematuria post procedure. No nausea or vomiting. No fever or chills. Review of Systems Constitutional: as per Subjective / HPI Gastrointestinal: as per Subjective / HPI Genitourinary: as per Subjective / HPI Physical Exam Constitutional: well developed and well nourished; no acute distress and not ill appearing Neck: normal visual inspection Respiratory: normal respiratory effort and able to speak in complete sentenc es; no respiratory distress and no labored breathing Cardiovascular: Extremities: no pedal edema Gastrointestinal (Abdomen): Inspection/Auscultation: abdomen normal to inspection; abdomen not distended Musculoskeletal: Head/Neck/Chest: normocephalic Skin: no visible rashes Neurologic: moves all extremities and awake Psychiatric: Orientation: alert and oriented x 3 Results & Data ([facility]) Vital Signs (Past 12 Hours) Vital Signs Temp Pulse Pulse Resp BP BP Pulse Ox 09/19/21 07:45 36.5 C 60 14 170/78 H 96 09/19/21 05:00 36.7 C 59 L 174/84 H 95 09/18/21 22:16 36.5 C 56 L 16 163/78 H 95 PG Care Time/CCT Total # of Minutes Spent Total Time Spent with Patient: Total time spent is greater than 50% in coordination of care (as documented) at patient's floor/unit and/or counseling patient: Coding Level of Care Code 37507 Subseq Hosp Care Lvl 2 Diagnoses Right nephrolithiasis N20.0 UTI (urinary tract infection) N39.0 S/P ureteral stent placement Z96.0
[2021-09-19] MEDS: cefTRIAXone SODIUM 1,000 MG in DEXTROSE 5% 50 ML IV SCH (12:14)
--- NOTE | 2021-09-19 14:39 | Discharge Summary ---
Date of Service September 19, 2021 Admission HPI Per Admitting Provider Patient is a 76-year-old female with a past medical history of kidney stones requiring surgical intervention who presents today with right flank pain. Symptom onset began in the middle of the night Sunday, she began experiencing nausea/vomiting/diarrhea. She presented to the ED, responded well to Zofran at that time and was discharged home for presumed gastroenteritis. She presented again yesterday with mild low back pain, dysuria, and increased urinary urgency/frequency. She was found to have a 5 mm distal right ureteral stone at the time with hydronephrosis. With IVF and Zofran, she felt better and was disc harged with oxycodone. This morning, her back pain became worse, was more specific noted to be right flank pain. She presents to the ED for further evaluation. Otherwise well complaints, no fevers/chills, chest pain, palpitations, shortness of breath, hematemesis, melena, hematochezia, hematuria, anuria. In ED, she slightly hypertensive, otherwise vital signs within normal limits and stable. Labs significant for UA positive for blood, nitrite, leukoesterase, bacteria. K+ 3.4. KUB x-ray shows radiodensity of the right hemipelvis, renal ultrasound shows nonobstructing calculi of the right kidney measuring up to 4 mm and mild to moderate right-sided hydroureteronephrosis which has progressed since yesterday's study. Principal Diagnosis Kidney stone with hydronephrosis Discharge Exam Constitutional WD/WN, vitals as above Eyes EOM intact bilaterally; no conjunctival abnormality ENMT external ear and nose normal, oropharynx normal Neck trachea midline, no thyromegaly normal visual inspection Respiratory normal respiratory effort, lungs clear to auscultation no respiratory distress Cardiovascular RRR, no murmur, no edema Gastrointestinal (Abdomen) Inspection/Auscultation: abdomen normal to inspection; abdomen not distended Musculoskeletal no cyanosis or clubbing, extremities motor strength 5/5 Skin no rashes, warm and dry Neurologic moves all extremities and awake Psychiatric Orientation: alert, oriented to person and cooperative Discharge Data Allergies Allergy/AdvReac Type Severity Reaction Status Date / Time No Known Allergies Allergy Verified 09/17/21 15:50 Consultations 09/17/21 17:10 ED Decision to Admit Stat 09/17/21 18:38 Consult Urology Routine Procedures Performed Operation Date: 09/18/21 13:00 Actual Procedures p Cystoscopy(Right) - Estevan Lucas MD s Right Ureteral Stent Insertion(Right) - Estevan Lucas MD Ordered Studies 09/17/21 15:37 US renal/blad retro comp Stat 09/18/21 07:53 FL retrograde includes kub Routine Hospital Course (1) Right nephrolithiasis: Nonobstructing right calculi measuring up to 4 mm with mild to moderate right-sided hydroureteronephrosis. - Pain management with Tylenol, Toradol, morphine. - Zofran, Phenergan for nausea/vomiting. - Urology consulted, appreciate recommendations -> Stent on 09/18. Some mild discomfort, but tolerable with just acetaminophen. Will f/u with urology in 1-2 weeks for stent removal and stone ablation. - Discharged on Flomax per urology recs. (2) UTI (urinary tract infection): Mild dysuria, increased frequency over the past day with UA positive for nitrates, leukoesterase, bacteria. - Ceftriaxone 1 g daily. - Urine culture with Klebsiella -> Discharged on 5 more days of Omnicef for a total of 7-day course. Total Time Total Time Spent Total Time Spent (In Minutes): 35 Discharge Plan Discharge Items Patient Disposition: Home - Self-Care Reason For Visit: KIDNEY STONE Discharge Diagnosis: Kidney stone Activity: As commented below Activity Comment: Gradually increase as tolerated Non-emergency contact: Primary Care Provider and Urologist Call non-emergency contact if: your symptoms worsen Follow-up/Referrals: Eduardo Conti [Primary Care Provider] - 09/26/21 10:00 am Estevan Lucas MD [Physician] - (Please call Dr. Lucas's office on Sunday if you haven't heard from them prior to that. Isaura, from [facility] will call the patient with a hospital follow up after speaking to Dr. Lucas.) Diet: Regular Addtl Attending Provider Instructions: Ms. Blake, You were admitted to the hospital with a kidney stone and bladder infection. The kidney stone was backing urine up into the kidney which can cause pain and allow an infection to get very severe. Dr. Lucas put in a stent to help relieve this pressure, and you are doing well enough to go home today. Please take your antibiotics twice a day until gone. Your first dose will be tonight before bedtime. We are also giving you a medication called "Flomax" or tamsulosin that is meant to make it easier for the kidney stone to pass. Take this medication once a day in the evening before bedtime. It can cause some temporary dizziness with position changes, so be careful when you sit or stand to let your body adjust. Dr. Lucas's office should call today or tomorrow with your follow up visit. If you don't hear from them by Sunday, call the office on Sunday. Please call their office with any worsening pain, fever, chills, nausea, vomiting, or other concerning symptoms. Come to the ER if you cannot get in contact with them or have concerning symptoms such as dizziness, lightheaded, confusion, or anything else. For your present pain from the stent, please use Tylenol as needed within bottle recommendations or an NSAID such as ibuprofen or naproxen (again, within the recommended limits on the bottle). From [facility]: Please take all medications as prescribed and keep all follow-ups as scheduled. Please call our office at [phone] with any questions, concerns or need to reschedule appointments for any reason. We are happy to assist you. Office location: [address] [place] [address] While you have a ureteral stent in place: Some discomfort is normal. Certain movements may trigger pain or a feeling that you need to urinate. You may also feel mild soreness or pressure before or during urination. These symptoms should go away a few days after the stent is removed. Your urine may be slightly pink or red. This is due to bleeding caused by minor irritation from the stent. This may happen on and off while you have the stent, it is not harmful and is to be expected. Medication to help minimize discomfort or bladder spasms, or to prevent infection may be prescribed. Take this as directed. Drink plenty of fluids to help flush out your urinary tract. If you go home with a catheter, wash with soapy water and a fresh washcloth twice daily. We recommend mild bar soap such as Dial or Dove. How long will you need a stent? An appointment should already be made for you for stent removal, unless directed otherwise. The stent is often taken out after the blockage in the ureter is treated or the ureter has healed. This may take 1-2 weeks, or longer. If a stent is needed for a longer period of time, it may need to be exchanged every few months. Likely prior to your followup appointment you will be asked to get an X-ray, please complete this the night before or morning of your appointment. When to call [facility] at [phone]: Your urine contains heavy blood clots You are constantly leaking urine Fever of 101F or higher, chills, nausea, or vomiting Your pain is not relieved with medication The end of the stent comes out of your urethra Pending Studies at Discharge: No Stand-Alone Forms: My [facility] [employer], Smoking Cessation Medications and DC Order Prescriptions: New cefdinir 300 mg capsule 300 mg PO BID 5 Days Qty: 10 RF: 0 tamsulosin [Flomax] 0.4 mg capsule 0.4 mg PO HS Qty: 14 RF: 0 Continued oxycodone 5 mg tablet 5 mg PO Q6H PRN (Reason: pain) Qty: 10 RF: 0 ondansetron 4 mg tablet,disintegrating 4 mg PO Q8H PRN (Reason: Vomiting) RF: 0 Discharge Orders: Discharge Order (Routine); Ordered 09/19/21 Ordered By: Fox Graf Admission Data Admit Date/Time: 09/17/21 17:03 Attending Provider: Fox Graf Admit Provider: Fox Graf Primary Care Provider: Eduardo Conti Other Providers: Fox Graf ; Estevan Lucas Other Interventions: Discharge Summary Assessment (RN) Last Done: 09/19/21 10:14 Coding Level of Care Code D/C DAY MANAGEMENT >30 MINS Diagnoses Right nephrolithiasis N20.0 UTI (urinary tract infection) N39.0
== END 2021-09-19 13:30 | disposition home or self-care (01) | DRG 661 ==
LOC: ED 15:18 → 3E 17:03

== ENCOUNTER 2024-02-03 05:21 | Observation (INO) ==
[2024-02-03 06:11] LABS: Appearance Urine Clear (Clear); Bacteria Urine Automated None Seen (None Seen); Bilirubin Urine Negative (Negative); Blood Urine Negative (Negative); Cast Urine Automated 0-2 /lpf (0-2); Color Urine Yellow; Epithelial Cell Urine Auto 0-2 /hpf (0-2); Glucose Urine UA Negative (Negative); Ketones Urine Negative (Negative); Leukocyte Esterase Urine 1+ (Negative); Nitrite Urine Negative (Negative); Protein Urine Negative (Negative); RBC Urine Automated 0-2 /hpf (0-2); Specific Gravity Urine 1.017 (1.000-1.030); Urobilinogen Urine Negative (Negative); WBC Urine Automated 0-5 /hpf (0-5); pH Urine 6.5 (4.5-7.5)
[2024-02-03 06:19] LABS: Basophils # (auto) 0.04 K/uL (0.00-0.20); Basophils % (auto) 0.7 %; Eosinophils # (auto) 0.18 K/uL (0.00-0.50); Eosinophils % (auto) 3.2 %; Hematocrit (blood only) 42.2 % (37.0-47.0); Hemoglobin 14.1 g/dl (12.0-16.0); Immature Granulocytes # (auto) 0.02 K/uL (0.01-0.20); Immature Granulocytes % (auto) 0.4 %; Lymphocytes # (auto) 1.56 K/uL (1.20-3.40); Lymphocytes % (auto) 27.7 %; Mean Corpuscular Hemoglobin 30.5 pg (25.0-34.0); Mean Corpuscular Hgb Conc 33.4 g/dL (32.0-36.0); Mean Corpuscular Volume 91.3 fL (80.0-100.0); Mean Platelet Volume 10.3 fL (9.4-12.4); Monocytes # (auto) 0.43 K/uL (0.11-0.59); Monocytes % (auto) 7.6 %; Neutrophils % (auto) 60.4 %; Platelet Count 200 K/uL (130-400); RDW Coefficient of Variation 12.8 % (11.5-14.5); RDW Standard Deviation 42.6 fL (36.4-46.3); Red Blood Count 4.62 M/uL (4.20-5.40); White Blood Count 5.63 K/ul (4.8-10.8)
[2024-02-03 06:30] LABS: Albumin Globulin Ratio 1.9 (0.9-2); Albumin Level 4.6 gm/dl (3.4-5.0); BUN Creatinine Ratio 25.5 (10-20); Calcium 9.7 mg/dl (8.6-10.3); Creatinine Clr Calc Pharmacy 45.1 ml/min; Est GFR (African American) 67.8 ml/min; Est GFR (Non-African American) 58.5 ml/min; Globulin 2.4 gm/dl (2.5-4.0); Potassium 4.2 mmol/L (3.5-5.1)
[2024-02-03 06:36] LABS: Troponin I High Sensitivity 4.9 pg/ml (0-14)
[2024-02-03] MEDS: SODIUM CHLORIDE 0.9% 1,000 ML IV ONE (06:59)
[2024-02-03] MEDS: ONDANSETRON INJ 2 MG/ML 2 ML VIAL IV STA (06:59)
--- NOTE | 2024-02-03 07:16 | Emergency Department Note ---
Impression & Plan Weakness, Nausea, Right flank pain, Failure of outpatient treatment ED Provider Note NAME: PRAVEEN WINKLER AGE: 78 SEX: F : 1945 ARRIVES VIA: Walk-In INFORMANT: [Patient] ED PROVIDER(S): [Kris Simeon MD] CHIEF COMPLAINT: Flank pain HISTORY OF PRESENT ILLNESS: The patient is a 78-year-old female who states that she has had a month of symptoms. She has had lethargy, weakness, nausea. There has been no vomiting. She has had intermittent right flank pain. She states that this is her fifth visit to a provider for this trouble and so far, nothing has been found to explain her presentation. She has a referral to urology pending. She was found to have a right renal stone but it was not passing or causing any issue. The patient did have tick smears performed they were negative. Lyme testing was negative. The patient states that she has lost some weight. She is unable to sleep, she cannot function with how she feels, she thinks there is something wrong that is not being found on routine testing. PMHx/PSHx/Social Hx: See Below PHYSICAL EXAM: GENERAL: Patient is in no acute distress. Anxious, at times almost tearful. HEENT: No acute trauma, normocephalic atraumatic, mucous membranes moist, no nasal congestion. NECK: No stridor, no adenopathy, no meningismus, trachea is midline. LUNGS: Clear to auscultation bilaterally, no wheeze, no rhonchi, breath sounds equal. HEART: Without murmurs gallops or rubs, regular rate and rhythm. ABDOMEN: Soft, nontender, no peritonitis. EXTREMITIES: No cyanosis, full range of motion of all the joints without pain or difficulty. NEUROLOGIC: Oriented x 3, no acute motor or sensory deficits, no focal weakness. SKIN: No jaundice, no diaphoresis. Back: She does have some discomfort to palpate the right lower lateral ribs. There is no rash in this area. No flank discomfort to percussion. DIFFERENTIAL DIAGNOSIS: Tickborne disease, malignancy, viral illness, electrolyte imbalance, dehydration, anxiety, among others. EMERGENCY DEPARTMENT PROCEDURES: MEDICAL DECISION MAKING: There is no leukocytosis or concerning anemia. There is a normal platelet count. No renal failure or significant electrolyte abnormality. No concerning liver enzyme elevation. ECG shows a normal sinus rhythm, there is no acute ischemia. Cardiac enzyme testing x 1 is not consistent with acute cardiac injury. Urinalysis does not show findings of infection. Anaplasmosis and Babesia smears were negative. The send out testing is pending. The patient was given IV saline, IV Zofran. The patient has been to our ER multiple times with the same complaints. She has had CT imaging of her abdomen pelvis performed. She has had laboratory testing done. She has seen her family doctor's office in the outpatient setting. The patient is not improving despite care/advice outpatient. She is truly afraid to go home as she feels unsafe. She feels there is something wrong that is being missed by routine testing. An ultrasound of the kidneys was performed. The patient did have a stone in the right kidney, there was no hydronephrosis. KUB showed some constipation, no bowel obstruction. I spoke with the patient, for now, hospitalization/observation was recommended. I spoke with case management, the on-call hospitalist was consulted. The cause for her ongoing complaints is unclear. Prior/Outside records/notes reviewed: Family practice note from 01/31/2024 discussing her complaints and plans for urology referral. ECG per my interpretation: Indication was weakness. The ECG shows a normal sinus rhythm with a rate of 67. There is a potential old septal infarct. There is no acute ST elevation, no PVCs. There is a potential old lateral infarct. QTc was 418. Continuous Cardiac Monitoring per my interpretation: An order was placed for continuous cardiac monitoring. The monitor shows a rate of 69 with normal sinus rhythm. Imaging/x-ray results per my interpretation: KUB shows some constipation, no bowel obstruction. Chronic Medical/Social conditions affecting care: Advanced age. Care/Management discussed with: Case management, the on-call hospitalist. Level of care consideration(s): After review of the information above and other included data: --I believe the patient requires escalation of care to admission DISPOSITION: Admission Past Med/Surg History Problem List (Updated 02/03/24 @ 14:51 by Kris Simeon MD) Failure of outpatient treatment (Acute) Right flank pain (Acute) Nausea (Acute) Weakness (Acute) Pain, rectum (Acute) Malaise (Acute) Abdominal pain (Acute) Flank pain (Acute) Low back pain Dysuria Carpal tunnel syndrome, left Renal colic (Acute) Flank Pain (Acute) Hydronephrosis (Acute) Right nephrolithiasis Hypokalemia (Acute) UTI (urinary tract infection) S/P ureteral stent placement No pertinent past medical history Medical History Arthritis Kidney stones Elevated BP without diagnosis of hypertension CURRENLTY R/T PAIN Surgical History History of open reduction and internal fixation (ORIF) procedure History of cystoscopy History of bilateral tubal ligation History of colonoscopy History of appendectomy Family History (Updated 01/31/24 @ 10:38 by Lucía Wisdom LPN) Mother Family history of diabetes mellitus Diabetes Father Hypertension Heart disease Other No family history of adverse response to anesthesia Denies family history of Ovarian cancer Prostate cancer Lung cancer Colorectal cancer Stroke Social History Smoking Status: Never smoker Second Hand Exposure: No; Do You Dip or Chew Tobacco: No; Hx Alcohol Use: No Hx Substance Use: No Preferred Language: Greenlandic Communication Ability: Effective Visual Impairment: Partially Limited Hearing Ability: Normal Wrap Yarn Sorter Required: No Beliefs That Will Affect Care: None marital status: Current Living Situation: Spouse Current Living Situation Comment: current occupational status: retired How many Children do You have: 2 Other Information That Helps Us Care for You: No Feels Safe at Home: Yes Childhood Exposure to Second-Hand Smoke: No Diet: regular caffeine: No during the past year weight has: remained stable Dental Care, Regularly: Yes Physical Activity Frequency: Daily Seatbelt Use: always Sunscreen Use: Yes Assistive Devices: Glasses Allergies Allergies Allergy/AdvReac Type Severity Reaction Status Date / Time No Known Allergies Allergy Verified 01/31/24 10:33 Home Meds Home Medications Medication Instructions Recorded Confirmed multivitamin 1 tab PO DAILY 11/10/21 02/03/24 probiotic capsule 1 cap PO DAILY 01/31/24 02/03/24 Results & Data (ED) Vital Signs Vital Signs - 24 hr 02/03/24 05:23 02/03/24 05:23 02/03/24 05:50 Temperature 36.6 C Temperature Source Temporal Artery Scan Pulse Rate 74 69 Pulse Rate [Apical] 74 Pulse Rhythm Regular Pulse Rhythm [Apical] Regular Pulse Strength Normal Pulse Strength [Apical] Normal Respiratory Rate 16 18 Respiratory Effort / Characteristics Non-Labored Spontaneous Non-Labored Spontaneous Respiratory Depth Normal Normal Respiratory Pattern Regular Regular Blood Pressure 152/89 H Blood Pressure [Right Arm] 152/89 H Blood Pressure Mean 110 Blood Pressure Mean [Right Arm] 110 Blood Pressure Position Sitting Blood Pressure Position [Right Arm] Lying Pulse Oximetry 99 99 Oxygen Delivery Method Room Air Room Air Sepsis Recent Fever Within 48 Hours No Sepsis New/Unexplained Change in Mental Status N/A Sepsis Action Taken by Nursing No Action Required 02/03/24 07:24 Temperature Temperature Source Pulse Rate Pulse Rate [Apical] 67 Pulse Rhythm Pulse Rhythm [Apical] Pulse Strength Pulse Strength [Apical] Respiratory Rate 15 Respiratory Effort / Characteristics Non-Labored Respiratory Depth Respiratory Pattern Blood Pressure Blood Pressure [Right Arm] 189/85 H Blood Pressure Mean Blood Pressure Mean [Right Arm] 119 Blood Pressure Position Blood Pressure Position [Right Arm] Lying Pulse Oximetry 97 Oxygen Delivery Method Room Air Sepsis Recent Fever Within 48 Hours Sepsis New/Unexplained Change in Mental Status Sepsis Action Taken by Halfway Medications Current Medication List: was personally reviewed by me Laboratory Data Attestation: I reviewed the patient's lab results. 02/03/24 05:49 02/03/24 05:49 Lab Results 02/03/24 Range/Units 05:49 WBC 5.63 (4.8-10.8) K/ul RBC 4.62 (4.20-5.40) M/uL Hgb 14.1 (12.0-16.0) g/dl Hct 42.2 (37.0-47.0) % MCV 91.3 (80.0-100.0) fL MCH 30.5 (25.0-34.0) pg MCHC 33.4 (32.0-36.0) g/dL RDW Std Deviation 42.6 (36.4-46.3) fL RDW Coeff of So 12.8 (11.5-14.5) % Plt Count 200 (130-400) K/uL MPV 10.3 (9.4-12.4) fL Immature Gran % (Auto) 0.4 % Neut % (Auto) 60.4 % Lymph % (Auto) 27.7 % Saunders % (Auto) 7.6 % Eos % (Auto) 3.2 % Baso % (Auto) 0.7 % Neut # (Auto) 3.40 (1.40-6.50) K/uL Lymph # (Auto) 1.56 (1.20-3.40) K/uL Saunders # (Auto) 0.43 (0.11-0.59) K/uL Eos # (Auto) 0.18 (0.00-0.50) K/uL Baso # (Auto) 0.04 (0.00-0.20) K/uL Immature Gran # (Auto) 0.02 (0.01-0.20) K/uL Sodium 140 (136-145) mmol/L Potassium 4.2 (3.5-5.1) mmol/L Chloride 103 (98-107) mmol/L Carbon Dioxide 29 (21-32) mmol/L Anion Gap 8 (3-11) BUN 24 H (6-23) mg/dl Creatinine 0.94 (0.6-1.2) mg/dl Est Cr Clr Drug Dosing 45.1 ml/min Est GFR ( Amer) 67.8 ml/min Est GFR (Non-Af Amer) 58.5 ml/min BUN/Creatinine Ratio 25.5 H (10-20) Glucose 91 (70-99(Fasting)) mg/dl Calcium 9.7 (8.6-10.3) mg/dl Total Bilirubin 1.0 (0.2-1.0) mg/dl AST 23 (13-39) U/L ALT 15 (7-52) U/L Alkaline Phosphatase 67 (34-104) U/L Troponin I High Sens 4.9 (0-14) pg/ml Total Protein 7.0 (6.0-8.3) gm/dl Albumin 4.6 (3.4-5.0) gm/dl Globulin 2.4 L (2.5-4.0) gm/dl Albumin/Globulin Ratio 1.9 (0.9-2) Urine Color Yellow Urine Appearance Clear (Clear) Urine pH 6.5 (4.5-7.5) Ur Specific Parrott 1.017 (1.000-1.030) Urine Protein Negative (Negative) Urine Glucose (UA) Negative (Negative) Urine Ketones Negative (Negative) Urine Blood Negative (Negative) Urine Nitrite Negative (Negative) Urine Bilirubin Negative (Negative) Urine Urobilinogen Negative (Negative) Ur Leukocyte Esterase 1+ H (Negative) Urine WBC (Auto) 0-5 (0-5) /hpf Urine RBC (Auto) 0-2 (0-2) /hpf U Hyaline Cast (Auto) 0-2 (0-2) /lpf U Epithel Cells (Auto) 0-2 (0-2) /hpf Urine Bacteria (Auto) None Seen (None Seen) Anaplasma Smear See Comment Babesia Smear See Comment Administered Medications Famotidine (Pepcid 20mg Iv Push) 20 mg in 5 mls @ 2.5 mls/min IV Q12 JOHANNY Stop: 03/04/24 10:14 Last Admin: 02/03/24 10:34 Dose: 2.5 mls/min Documented By: TIERRA Multivitamins (Multivitamin Tab) 1 tab PO QAM JOHANNY Stop: 03/04/24 09:59 Last Admin: 02/03/24 10:32 Dose: 1 tab Documented By: TIERRA Senna/Docusate Sodium (Docusate Sodium/Senna 50/8.6mg Tab) 1 tab PO Q12 JOHANNY Stop: 03/04/24 10:14 Last Admin: 02/03/24 10:33 Dose: 1 tab Documented By: TIERRA Discontinued Medications Gadobutrol (Gadobutrol 30ml Vial) 6 ml IV ONCE ONE Stop: 02/03/24 12:52 Last Admin: 02/03/24 12:52 Dose: 6 ml Documented By: PAUL Sodium Chloride (Nss) 1,000 mls @ 999 mls/hr IV .Q1H1M ONE Stop: 02/03/24 07:50 Last Infusion: 02/03/24 08:07 Dose: Infused Documented By: Admin: 02/03/24 06:59 Dose: 999 mls/hr Documented By: LUIS Ioversol (Optiray 320 125ml) 119 ml IV ONCE ONE Stop: 02/03/24 10:54 Last Admin: 02/03/24 10:53 Dose: 119 ml Documented By: JOSE Lorazepam (Lorazepam 0.5 Mg Tab) 0.5 mg PO UD STA Stop: 02/03/24 09:58 Last Admin: 02/03/24 10:32 Dose: 0.5 mg Documented By: TIERRA Ondansetron HCl (Ondansetron Inj 2 Mg/Ml 2 Ml Vial) 4 mg IV NOW STA Stop: 02/03/24 06:51 Last Admin: 02/03/24 06:59 Dose: 4 mg Documented By: LUIS Imaging Data Radiologist's Impression: KUB X-Ray 02/03/24 05:27 KUB HISTORY: R flank pain, known stone intrarenal COMPARISON: Abdomen and pelvis CT 01/29/2024. KUB 12/21/2022. FINDINGS: The bowel gas pattern is unremarkable. There are no dilated loops of small bowel to suggest an obstruction. Stable 3 mm stone within the right kidney. No left renal calculi. No ureteral calculi. Stable calcifications in the deep pelvis which favor phleboliths. No pneumoperitoneum or pneumatosis. IMPRESSION: 1. Stable right-sided nephrolithiasis. 2. No ureteral stones. ACT 112: Negative or not required by law. Electronically signed by: Guido Hurst M.D. 02/03/2024 8:01 AM Renal Ultrasound 02/03/24 05:27 RENAL ULTRASOUND HISTORY: R flank pain. Intrarenal stone on last CT COMPARISON: Abdomen and pelvis CT 01/29/2024. FINDINGS: Right kidney: 9.1 cm. There is a 4 mm stone within the mid right kidney, unchanged. No hydronephrosis. Normal corticomedullary differentiation and cortical thickness. Left kidney: 9.1 cm. No hydronephrosis. Normal corticomedullary differentiation and cortical thickness. Bladder: No bladder wall thickening. The bilateral ureteral jets were identified. Prevoid volume of the bladder was 97 cc. Postvoid residual was 10 cc. IMPRESSION: 1. Stable right-sided nephrolithiasis. 2. No hydronephrosis. 3. Trace post void residual of 10 cc. ACT 112: Negative or not required by law. Electronically signed by: Guido Hurst M.D. 02/03/2024 8:03 AM Discharge Plan Visit Data Chief Complaint: Flank Pain Stated Complaint: BACK PAIN ED Provider: Kris Simeon Discharge Problem: Weakness, Nausea, Right flank pain, Failure of outpatient treatment Patient Disposition: Admitted As Inpatient Condition: Good Discharge Instructions Interventions: ED Discharge Assessment Last Done: 02/03/24 09:09
[2024-02-03] MEDS ORDERED: HYDROmorphone INJ 0.5 MG/0.5 ML SYR IV PRN (07:32)
[2024-02-03] MEDS ORDERED: LORazepam 0.5 MG TAB PO PRN (07:32)
[2024-02-03] MEDS ORDERED: ACETAMINOPHEN 10MG/ML Custom 1,000 MG in EMPTY BAG 0 ML IV PRN (07:32)
[2024-02-03] MEDS ORDERED: HYDROmorphone INJ 1 MG/ML SYRINGE IV PRN (07:32)
--- NOTE | 2024-02-03 07:38 | History & Physical Report ---
Date of Service February 03, 2024 Assessment & Plan (1) Abdominal pain: Plan: pt with intractable intermittent nausea and fatigue, additional unassociated right abdominal pain and minimal weight loss, on admission no pathology suggested on imaging or with blood work ER visits, 01/02, 01/18, 01/22, 01/28, (pcp visit 01/30). CT abd/pelvis 01/02, 01/22, 01/28 Patiently brought in our facility. Will perform a CT angiogram to look at her celiac axis although she is having no postprandial pains consistent with intestinal angina nor serology changes consistent with organ ischemia. MRI of her brain with and without contrast to look for DEPARTMENT HELPER sources of nausea A.m. cortisol, free T4, gluten panel which will be sent that to send out. (Patient does not note any prandially associated symptoms) Patient has tick serology pending at this time She has had no other ill contacts and her symptoms began before her travel Explained to the patient that at this time we are going additional diagnostic testing but may have a low likelihood of finding an exact cause or etiology. Patient does mention stress a few times certainly stress-induced gastritis could be an issue we will institute Pepcid twice daily Over 90 minutes were spent with this patient with extensive chart review and bedside evaluation and interview History of Present Illness Primary Care Provider: Rivera Pop, JUNAID 78 F with recurrent Er visits for convinced that there is something wrong with her Reason for visit today includes nausea and fatigue. Patient reportedly initially presented for this current bout of illness on January 02 when she was actually driving for vacation and turned around and came back to the ER at that time she had some right-sided abdominal pain and abnormal urinalysis with leukocyte esterase. She was discharged on cefdinir 300 twice daily urine culture from that visit did not grow any bacteria. Reportedly 2 days into the cefdinir she went to the emergency department aerobic blanding due to abdominal pain they felt that her abdominal pain might be from her antibiotic and this was discontinued. Upon return she was still not feeling well saw her primary care doctor who felt that her urinary tract infection may not be completely treated and prescribed a course of cefadroxil.. She had subsequent ER visits on January 18, (saw PCP the ) and now back here on the Patient has persistent nausea reportedly had weight loss but says its only been about 1 pound. She is of low weight with a BMI of 21 to begin with. She has constipation but no change in stool habits as she is frequently constipated. She has no changes in urinary habits and she has no changes in gynecological health. She has been up-to-date with her colonoscopies. She says she does get flank pain occasionally usually not associated with nausea. The nausea is associate with postprandial fullness. She relegate stress in her life over the summer due to recent senior living but she feels the stress is since resolved and despite that her symptoms have persisted. Today she has had multiple images of her abdomen with CAT scan repeat urine cultures and serologies here without evidence of abnormalities Allergies Allergy/AdvReac Type Severity Reaction Status Date / Time No Known Allergies Allergy Verified 01/31/24 10:33 Home Medications Medication Instructions Recorded Confirmed Type multivitamin 1 tab PO DAILY 11/10/21 02/03/24 History probiotic capsule 1 cap PO DAILY 01/31/24 02/03/24 History Past Med/Surg History Problem List (Updated 02/03/24 @ 00:08 by Ag Dey) Pain, rectum (Acute) Malaise (Acute) Abdominal pain (Acute) Flank pain (Acute) Low back pain Dysuria Carpal tunnel syndrome, left Renal colic (Acute) Flank Pain (Acute) Hydronephrosis (Acute) Right nephrolithiasis Hypokalemia (Acute) UTI (urinary tract infection) S/P ureteral stent placement No pertinent past medical history Medical History Arthritis Kidney stones Elevated BP without diagnosis of hypertension Surgical History History of open reduction and internal fixation (ORIF) procedure History of cystoscopy History of bilateral tubal ligation History of colonoscopy History of appendectomy Family History (Updated 01/31/24 @ 10:38 by Lucía Wisdom LPN) Mother Family history of diabetes mellitus Diabetes Father Hypertension Heart disease Other No family history of adverse response to anesthesia Denies family history of Ovarian cancer Prostate cancer Lung cancer Colorectal cancer Stroke Social History (Updated 01/31/24 @ 10:40 by Lucía Wisdom LPN) Smoking Status: Never smoker Second Hand Exposure: No; Do You Dip or Chew Tobacco: No; Hx Alcohol Use: Yes Hx Substance Use: No Preferred Language: [place] Communication Ability: Effective Visual Impairment: Partially Limited Hearing Ability: Normal Rail Loader Required: No Beliefs That Will Affect Care: None marital status: Current Living Situation: Spouse Current Living Situation Comment: current occupational status: retired How many Children do You have: 2 Feels Safe at Home: Yes Childhood Exposure to Second-Hand Smoke: No Diet: regular caffeine: No during the past year weight has: remained stable Dental Care, Regularly: Yes Physical Activity Frequency: Daily Seatbelt Use: always Sunscreen Use: Yes Assistive Devices: Glasses Review of Systems Review of Systems: Mild distress and fatigue no headache, no visual changes no speech or swallowing issues no chest pain, pressure or palpitations Occasional descriptions of shortness of breath usually with exercising, cough or wheezes Right flank abdominal pain, persistent nausea without vomiting, chronic constipation no changes in bowel color no dysuria, hematuria or frequency No issues with gynecological discharge or pain no focal joint pain or swelling no back pain, occasional right CVA tenderness without radiation no bruising, bleeding or rashes no focal signs of weakness or numbness or altered sensation Has complaints of stress this past summer Physical Exam Physical Exam: The patient appeared well nourished and normally developed. Vital signs as documented. Head exam is normocephalic atraumatic Neck is without JVD, thyromegaly, or carotid bruits. There is no lymphadenopathy Lungs are clear to auscultation, no focal loss of breath sounds Cardiac exam, Rhythm is regular.. No murmurs, rubs or gallops. There is no organomegaly Abdominal exam reveals normal bowel sounds, soft non tender, no masses Extremities are nonedematous and both pedal pulses are present Neurologic exam is alert and oriented, no focal loss of strength or sensation Skin is without bruises or rashes Psychologically is without concerns for anxiety or depression.. Results & Data Results & Data Vital Signs (Past 12 Hours) Vital Signs Temp Pulse Pulse Resp BP BP Pulse Ox 02/03/24 07:24 67 15 189/85 H 97 02/03/24 05:50 69 02/03/24 05:23 74 18 152/89 H 99 02/03/24 05:23 97.9 F 74 16 152/89 H 99 O2 Del Method 02/03/24 07:24 Room Air 02/03/24 05:50 02/03/24 05:23 Room Air 02/03/24 05:23 Room Air Laboratory Results Reviewed serology reviewed past images Code Status & VTE Plan VTE Prophylaxis Plan VTE Prophylaxis will be ordered: Yes PG Care Time/CCT Total # of Minutes Spent Total Time Spent with Patient: Total time spent is greater than 50% in coordination of care (as documented) at patient's floor/unit and/or counseling patient: Coding Level of Care Code 56487 INT INP/OBS CARE 3/75MIN Diagnoses Abdominal pain R10.9
[2024-02-03] MEDS ORDERED: ACETAMINOPHEN 1,000 MG/100 ML VIAL IV PRN (07:45)
--- NOTE | 2024-02-03 08:03 | XRay Report ---
KUB HISTORY: R flank pain, known stone intrarenal COMPARISON: Abdomen and pelvis CT 01/29/2024. KUB 12/21/2022. FINDINGS: The bowel gas pattern is unremarkable. There are no dilated loops of small bowel to suggest an obstruction. Stable 3 mm stone within the right kidney. No left renal calculi. No ureteral calcu li. Stable calcifications in the deep pelvis which favor phleboliths. No pneumoperitoneum or pneumato sis. IMPRESSION: 1. Stable right-sided nephrolithiasis. 2. No ureteral stones. ACT 112: Negative or not required by law. Electronically signed by: Guido Hurst M.D. 02/03/2024 8:01 AM
--- NOTE | 2024-02-03 08:05 | Ultrasound Report ---
RENAL ULTRASOUND HISTORY: R flank pain. Intrarenal stone on last CT COMPARISON: Abdomen and pelvis CT 01/29/2024. FINDINGS: Right kidney: 9.1 cm. There is a 4 mm stone within the mid right kidney, unchanged. No hydronephrosis . Normal corticomedullary differentiation and cortical thickness. Left kidney: 9.1 cm. No hydronephrosis. Normal corticomedullary differentiation and cortical thicknes s. Bladder: No bladder wall thickening. The bilateral ureteral jets were identified. Prevoid volume of t he bladder was 97 cc. Postvoid residual was 10 cc. IMPRESSION: 1. Stable right-sided nephrolithiasis. 2. No hydronephrosis. 3. Trace post void residual of 10 cc. ACT 112: Negative or not required by law. Electronically signed by: Guido Hurst M.D. 02/03/2024 8:03 AM
[2024-02-03] MEDS ORDERED: ACETAMINOPHEN 325 MG TAB PO PRN (09:53)
[2024-02-03] MEDS ORDERED: ONDANSETRON INJ 2 MG/ML 2 ML VIAL IV PRN (09:53)
[2024-02-03] MEDS: MULTIVITAMIN TAB PO SCH (10:32)
[2024-02-03] MEDS: LORazepam 0.5 MG TAB PO STA (10:32)
[2024-02-03] MEDS: DOCUSATE SODIUM/SENNA 50/8.6MG TAB PO SCH (10:33)
[2024-02-03] MEDS: FAMOTIDINE 20MG IV PUSH 20 MG/5 ML SYR IV SCH (10:34)
[2024-02-03] MEDS: OPTIRAY 320 125ml IV ONE (10:53)
--- NOTE | 2024-02-03 11:48 | CT Scan Report ---
CT angio abdomen pelvis w con CT DOSE: 624.61 mGy.cm CLINICAL HISTORY: eval for sma syndrome . Epigastric pain. TECHNIQUE: Multiaxial CT images of the abdomen and pelvis were performed following the intravenous ad ministration of contrast to evaluate the arterial structures. 3-D/maximum intensity projection images were also obtained in the sagittal and coronal plane for the CT portion of the examination. A dose lowering technique was utilized adhering to the principles of ALARA. COMPARISON STUDY: Abdomen and pelvis CT 01/29/2024. FINDINGS: Mild calcified plaque within the normal caliber abdominal aorta. No evidence for an aortic dissection. The iliac arteries show no significant stenosis, occlusion, or dissection. The celiac art chris and its branches are widely patent. The superior mesenteric artery and inferior mesenteric artery are widely patent. No evidence for SMA syndrome. Normal right renal artery which is widely patent. S lightly beaded appearance to the proximal left renal artery with mild multifocal narrowing of up to 3 0% suggestive of fibromuscular dysplasia. The lung bases are clear. No pneumoperitoneum. No pneumatosis. No acute fractures. Stable 12 mm hypod ense lesion within the right hepatic dome. This favors a cyst. The gallbladder, pancreas, spleen, and adrenal glands are unremarkable. No hydronephrosis. Stable 4 mm right renal stone. No ureteral stone s. No hydronephrosis. No retroperitoneal or pelvic lymphadenopathy. No pelvic free fluid. The bladder , uterus, bilateral adnexa are unremarkable. No bowel wall thickening or obstruction. Normal caliber duodenum. IMPRESSION: 1. No evidence for a SMA syndrome. 2. No bowel wall thickening or obstruction. 3. Right-sided nephrolithiasis. No ureteral stones. No hydronephrosis. 4. Slightly beaded appearance to the proximal left renal artery with mild multifocal narrowing of up to 30% suggestive of fibromuscular dysplasia. ACT 112: Negative or not required by law. Electronically signed by: Guido Hurst M.D. 02/03/2024 11:45 AM
--- NOTE | 2024-02-03 12:06 | Electrocardiogram Report ---
Test Reason : Blood Pressure : */* mmHG Vent. 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
[2024-02-03] MEDS: GADOBUTROL 30ML VIAL IV ONE (12:52)
--- NOTE | 2024-02-03 14:03 | Magnetic Resonance Report ---
Brain MRI WITH AND WITHOUT CONTRAST HISTORY: persistent unexplained nausea TECHNIQUE: Multiplanar multisequence MRI of the brain was performed both before and after the intrave nous administration of contrast. COMPARISON STUDY: Head CT 12/08/2022. FINDINGS: There is no mass, hematoma, midline shift, or acute infarct. The paranasal sinuses are eliot r. The mastoid air cells are clear. The ventricles and sulci demonstrate mild age-related involutiona l changes. Scattered foci of T2 hyperintensity seen within the periventricular and subcortical white matter are nonspecific but suggestive of mild to moderate microvascular ischemic changes. The major v ascular flow voids at the skull base are well-maintained. No abnormal enhancement. IMPRESSION: No acute intracranial abnormality. Scattered foci of T2 hyperintensity seen within the periventricula r and subcortical white matter are nonspecific but favor microvascular ischemic change. ACT 112: Negative or not required by law. Electronically signed by: Guido Hurst M.D. 02/03/2024 2:00 PM
[2024-02-04 08:05] LABS: Hemoglobin 13.5 g/dl (12.0-16.0); Mean Corpuscular Hgb Conc 33.8 g/dL (32.0-36.0); Mean Corpuscular Volume 91.7 fL (80.0-100.0); Mean Platelet Volume 10.2 fL (9.4-12.4); Platelet Count 177 K/uL (130-400); RDW Coefficient of Variation 12.7 % (11.5-14.5); RDW Standard Deviation 42.9 fL (36.4-46.3); Red Blood Count 4.36 M/uL (4.20-5.40); White Blood Count 5.23 K/ul (4.8-10.8)
[2024-02-04 08:09] LABS: Albumin Level 4.1 gm/dl (3.4-5.0); BUN Creatinine Ratio 21.4 (10-20); Bilirubin,Total 0.8 mg/dl (0.2-1.0); Calcium 9.5 mg/dl (8.6-10.3); Creatinine Clr Calc Pharmacy 41.2 ml/min; Est GFR (African American) 60.7 ml/min; Est GFR (Non-African American) 52.4 ml/min; Globulin 2.1 gm/dl (2.5-4.0); Potassium 4.9 mmol/L (3.5-5.1); Total Protein 6.2 gm/dl (6.0-8.3)
[2024-02-04] MEDS: ADVANCED PROBIOTIC 625 MG CAPSULE PO SCH (08:36)
--- NOTE | 2024-02-04 11:18 | Gastrointestinal Consultation ---
Date of Consultation February 04, 2024 Assessment & Plan (1) Failure of outpatient treatment: 78 year old female admitted through the ED for flank pain, fatigue, decreased appetite, early satiety, nausea, reflux/regurgitation. She endorses chronic constipation, no report of black/bloody stools. DDX discussed: constipation may be contributing to her current symptoms. No GI abnormality appreciated on CT imaging. Encouraged bowel regimen. Agree that EGD/Colonoscopy are appropriate testing as no recent endoscopic evaluations Follow celiac panel Miralax 1 capful twice daily x 1 week then Miralax 1 capful once daily Pantoprazole 40 mg once daily NPO aftermidnight for EGD 02/04 OP colonoscopy can be arranged We appreciate assistance in the management of any serological abnormality and corrections to include: hemoglobin >7, INR <2, platelets >50,000, potassium levels >3.5 but <5.3, and sodium levels within 5 points of the reference range prior to endoscopic evaluation. I spent a total of [] minutes on the date of service in review of patient's record, and previously obtained information in person and appropriate medical visit, discussion and education of plan, with patient and/or caregiver, placing orders for tests/referral/procedures as medically necessary and documentation of pertinent clinical information in patient's medical records for their visit today.Thank you for allowing us to participate in the care of this patient. Please call with any acute changes, questions or concerns. Please see addendum below with additional recommendation from my supervising physician. (2) Nausea: Supervising Physician Co-Signing Physician Notes I saw and examined this patient with our nurse practitioner and agree with her assessment and plan. Soft nontender no masses. 1 month history of nausea anorexia some epigastric discomfort. Cross sectional imaging unrevealing. Will proceed with upper endoscopy tomorrow to exclude luminal pathology such as gastritis peptic ulcer disease less likely neoplasm. History of Present Illness Reason for Consultation: persistent abd pain Requesting Physician: Yobani Attending Physician: Fede Hilton History of Present Illness 78 year old female without significant past medical history admitted through the ED with general unwell feeling - GI asked to evaluate. Pt was seen and evaluated, chart reviewed. She notes her symptoms started in December. Feels run down, unwell, flank pain, decreased appetite, nausea and early satiety. Was seen in the ED at that time, work up was concerning for kidney stones and UTI and was given a course of ABX. She notes ABX did not improve her symptoms so she sought ED evaluation again and was admitted. She notes her flank pain is unpredictable. Denies abd pain. She has nausea. This is intermittent. Not associated with oral intake. No aggravating factor identified. She endorses decreased appetite with early satiety. She has had some reflux, regurgitation and epigastric burning over the last week or so. Denies odynophagia, globus sensation, change in voice, hoarseness or dysphagia. She endorses chronic constipation worsening over the last year or so. Passes small volume, formed stools every 2/3 days. No black or bloody stools. Has had a 2 lb weight loss since symptoms started. Notes she is more active in summer and suggests this is normal weight fluctuation for her. 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 No evidence for a SMA syndrome.No bowel wall thickening or obstruction. Right-sided nephrolithiasis. No ureteral stones. No hydronephrosis. Slightly beaded appearance to the proximal left renal artery with mild multifocal narrowing of up to 30% suggestive of fibromuscular dysplasia. CTAP 2023: There is a 4 mm right renal calcification without evidence of hydronephrosis.There are some mildly distended loops of small bowel containing air, stool and fluid.. This may be related to an ileus. Cannot exclude a nonspecific enteritis. A 1 cm lucency in the right lobe of the liver may represent a cyst. Allergies Allergy/AdvReac Type Severity Reaction Status Date / Time No Known Allergies Allergy Verified 01/31/24 10:33 Home Medications Medication Instructions Recorded Confirmed Type multivitamin 1 tab PO DAILY 11/10/21 02/03/24 History probiotic capsule 1 cap PO DAILY 01/31/24 02/03/24 History Patient History Medical History Arthritis Kidney stones Elevated BP without diagnosis of hypertension Surgical History History of open reduction and internal fixation (ORIF) procedure History of cystoscopy History of bilateral tubal ligation History of colonoscopy History of appendectomy Family History Mother Family history of diabetes mellitus Diabetes Father Hypertension Heart disease Other No family history of adverse response to anesthesia Denies family history of Ovarian cancer Prostate cancer Lung cancer Colorectal cancer Stroke Social History Smoking Status: Never smoker Second Hand Exposure: No; Do You Dip or Chew Tobacco: No; Hx Alcohol Use: No Hx Substance Use: No Preferred Language: Togolese Communication Ability: Effective Visual Impairment: Partially Limited Hearing Ability: Normal 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 Required: No Beliefs That Will Affect Care: None marital status: Current Living Situation: Spouse Current Living Situation Comment: current occupational status: retired How many Children do You have: 2 Other Information That Helps Us Care for You: No Feels Safe at Home: Yes Childhood Exposure to Second-Hand Smoke: No Diet: regular caffeine: No during the past year weight has: remained stable Dental Care, Regularly: Yes Physical Activity Frequency: Daily Seatbelt Use: always Sunscreen Use: Yes Assistive Devices: None Review of Systems Review of Systems: All other findings negative except as noted in HPI. Physical Exam Constitutional: WD/WN, vitals as above Respiratory: normal respiratory effort, lungs clear to auscultation Cardiovascular: RRR, no murmur, no edema Gastrointestinal (Abdomen): normal bowel sounds, soft, nontender, no hepatosplenomegaly Skin: no rashes, warm and dry Results & Data Vital Signs (Past 12 Hours) Vital Signs Temp Pulse Resp BP Pulse Ox O2 Del Method 02/04/24 07:00 36.8 C 70 16 152/82 H 94 Room Air Laboratory Results 02/04/24 Range/Units 07:19 WBC 5.23 (4.8-10.8) K/ul RBC 4.36 (4.20-5.40) M/uL Hgb 13.5 (12.0-16.0) g/dl Hct 40.0 (37.0-47.0) % MCV 91.7 (80.0-100.0) fL MCH 31.0 (25.0-34.0) pg MCHC 33.8 (32.0-36.0) g/dL RDW Std Deviation 42.9 (36.4-46.3) fL RDW Coeff of So 12.7 (11.5-14.5) % Plt Count 177 (130-400) K/uL MPV 10.2 (9.4-12.4) fL Sodium 140 (136-145) mmol/L Potassium 4.9 (3.5-5.1) mmol/L Chloride 104 (98-107) mmol/L Carbon Dioxide 31 (21-32) mmol/L Anion Gap 5 (3-11) BUN 22 (6-23) mg/dl Creatinine 1.03 (0.6-1.2) mg/dl Est Cr Clr Drug Dosing 41.2 ml/min Est GFR ( Amer) 60.7 ml/min Est GFR (Non-Af Amer) 52.4 ml/min BUN/Creatinine Ratio 21.4 H (10-20) Glucose 95 (70-99(Fasting)) mg/dl Calcium 9.5 (8.6-10.3) mg/dl Total Bilirubin 0.8 (0.2-1.0) mg/dl AST 19 (13-39) U/L ALT 12 (7-52) U/L Alkaline Phosphatase 58 (34-104) U/L Total Protein 6.2 (6.0-8.3) gm/dl Albumin 4.1 (3.4-5.0) gm/dl Globulin 2.1 L (2.5-4.0) gm/dl Albumin/Globulin Ratio 2.0 (0.9-2) PG Care Time/CCT Total # of Minutes Spent Total Time Spent with Patient: Total time spent is greater than 50% in coordination of care (as documented) at patient's floor/unit and/or counseling patient: Coding Level of Care Code 83616 IN/OBS CONSULT LVL 4,60M Diagnoses Failure of outpatient treatment Z78.9 Nausea R11.0
--- NOTE | 2024-02-04 17:09 | Hospitalist Progress Note ---
Date of Service February 04, 2024 Assessment & Plan (1) Abdominal pain: Plan: pt with intractable intermittent nausea and fatigue, additional unassociated right abdominal pain and minimal weight loss, on admission no pathology suggested on imaging or with blood work ER visits, 01/02, 01/18, 01/22, 01/28, (pcp visit 01/30). CT abd/pelvis 01/02, 01/22, 01/28 Patiently brought in our facility. Will perform a CT angiogram to look at her celiac axis although she is having no postprandial pains consistent with intestinal angina nor serology changes consistent with organ ischemia. MRI of her brain with and without contrast to look for GENERAL ASSISTANT sources of nausea A.m. cortisol, free T4, gluten panel which will be sent that to send out. (Patient does not note any prandially associated symptoms) Patient has tick serology pending at this time She has had no other ill contacts and her symptoms began before her travel Explained to the patient that at this time we are going additional diagnostic testing but may have a low likelihood of finding an exact cause or etiology. Patient does mention stress a few times certainly stress-induced gastritis could be an issue we will institute Pepcid twice daily Patient's pain appears better today. Her imaging and blood work to date have been negative. Plan for EGD on 02/04 Admission and Anticipated Discharge Date Admission Date: February 03, 2024 Subjective Patient reports no new symptoms. She states her pain is better controlled today. She still has a poor apetite. She is asking about her MRI findings. Review of Systems Review of Systems: All systems reviewed & are unremarkable except as noted in HPI & below Physical Exam Physical Exam: The patient appeared well nourished and normally developed. Vital signs as documented. Head exam is normocephalic atraumatic Neck is without JVD, thyromegaly, or carotid bruits. There is no lymphadenopathy Lungs are clear to auscultation, no focal loss of breath sounds Cardiac exam, Rhythm is regular.. No murmurs, rubs or gallops. There is no organomegaly Abdominal exam reveals normal bowel sounds, soft non tender, no masses Extremities are nonedematous and both pedal pulses are present Neurologic exam is alert and oriented, no focal loss of strength or sensation Skin is without bruises or rashes Psychologically is without concerns for anxiety or depression.. Results & Data Results & Data Vital Signs (Past 12 Hours) Vital Signs Temp Pulse Pulse Resp BP BP Pulse Ox 02/04/24 15:22 36.5 C 72 16 141/86 H 92 02/04/24 07:00 36.8 C 70 16 152/82 H 94 O2 Del Method 02/04/24 15:22 Room Air 02/04/24 07:00 Room Air PG Care Time/CCT Total # of Minutes Spent Total Time Spent with Patient: Total time spent is greater than 50% in coordination of care (as documented) at patient's floor/unit and/or counseling patient: Coding Level of Care Code 31064 SUB INP/OBS CARE 2/35MIN Diagnoses Abdominal pain R10.9
[2024-02-05 08:11] LABS: Hematocrit (blood only) 40.9 % (37.0-47.0); Hemoglobin 13.7 g/dl (12.0-16.0); Mean Corpuscular Hemoglobin 30.8 pg (25.0-34.0); Mean Corpuscular Hgb Conc 33.5 g/dL (32.0-36.0); Mean Corpuscular Volume 91.9 fL (80.0-100.0); Mean Platelet Volume 10.2 fL (9.4-12.4); Platelet Count 187 K/uL (130-400); RDW Coefficient of Variation 12.8 % (11.5-14.5); RDW Standard Deviation 43.3 fL (36.4-46.3); Red Blood Count 4.45 M/uL (4.20-5.40); White Blood Count 6.11 K/ul (4.8-10.8)
[2024-02-05 08:18] LABS: Albumin Level 4.2 gm/dl (3.4-5.0); BUN Creatinine Ratio 26.7 (10-20); Bilirubin,Total 0.8 mg/dl (0.2-1.0); Calcium 9.4 mg/dl (8.6-10.3); Est GFR (African American) 62.2 ml/min; Est GFR (Non-African American) 53.7 ml/min; Globulin 2.1 gm/dl (2.5-4.0); Potassium 4.6 mmol/L (3.5-5.1); Total Protein 6.3 gm/dl (6.0-8.3)
--- NOTE | 2024-02-05 10:07 | History & Physical Bridge Note ---
Date of Service February 05, 2024 History & Physical Bridge Note I have examined the patient, reviewed the History & Physical and in the interval since the performance of the History & Physical I have noted the following changes of clinical significance: no changes noted. Patient will remain NPO and proceed with EGD today. Supervising Physician Co-Signing Physician Notes I saw and examined this patient with our nurse practitioner and agree with her assessment and plan. Soft nontender no masses. 1 month history of nausea anorexia some epigastric discomfort. Cross sectional imaging unrevealing. Will proceed with upper endoscopy tomorrow to exclude luminal pathology such as gastritis peptic ulcer disease less likely neoplasm.
[2024-02-05] MEDS: SODIUM CHLORIDE 0.9% 500 ML IV SCH (10:25)
--- NOTE | 2024-02-05 10:36 | Anesthesiology Consultation ---
Date of Service February 05, 2024 Assessment & Plan ASA ASA2 Proposed Anesthesia Anesthesia Type: MAC Risk / Benefits Reviewed With: PT / POA / Parent / Guardian, Accepts Plan and Informed Consent Obtained History Surgery Operation Date: 02/05/24 17:10 Proposed Procedures p Esophagogastroduodenoscopy Dr. Adriel Morel MD Height/Weight Height: 5 ft 5 in Weight: 57.606 kg Allergies Allergy/AdvReac Type Severity Reaction Status Date / Time No Known Allergies Allergy Verified 01/31/24 10:33 Medications Home Medications Medication Instructions Recorded Confirmed Last Taken multivitamin 1 tab PO DAILY 11/10/21 02/03/24 01/22/24 probiotic capsule 1 cap PO DAILY 01/31/24 02/03/24 Unknown Active Medications Generic Name Dose Route Start Last Admin Trade Name Freq PRN Reason Stop Dose Admin Famotidine 20 mg in 5 mls @ 2.5 mls/min 02/03/24 10:15 02/05/24 08:06 Pepcid 20mg Iv Push IV 03/04/24 10:14 2.5 mls/min Q12 JOHANNY Administration Sodium Chloride 500 mls @ 15 mls/hr 02/05/24 07:30 02/05/24 10:25 Nss IV 02/06/24 07:29 15 mls/hr .Q24H JOHANNY Administration Lactobacillus Acidophilus 1,250 mg 02/04/24 09:00 02/05/24 08:03 Advanced Probiotic 625 Mg Capsule PO 03/05/24 08:59 Not Given DAILY JOHANNY Multivitamins 1 tab 02/03/24 10:00 02/05/24 08:03 Multivitamin Tab PO 03/04/24 09:59 Not Given QAM JOHANNY Senna/Docusate Sodium 1 tab 02/03/24 10:15 02/05/24 08:03 Docusate Sodium/Senna 50/8.6mg Tab PO 03/04/24 10:14 Not Given Q12 JOHANNY NPO Date Last Intake of Fluids: 02/04/24 Time Last Intake of Fluids: 23:00 Date Last Intake of Solids: 02/04/24 Time Last Intake of Solids: 23:00 Past Medical History Medical History Arthritis Kidney stones Elevated BP without diagnosis of hypertension Exercise / Class Metabolic Activity II 4-5 Yardwork/Stairs/Walk up hill Past Family History Family History Mother Family history of diabetes mellitus Diabetes Father Hypertension Heart disease Other No family history of adverse response to anesthesia Denies family history of Ovarian cancer Prostate cancer Lung cancer Colorectal cancer Stroke Past Surgical History Surgical History History of open reduction and internal fixation (ORIF) procedure History of cystoscopy History of bilateral tubal ligation History of colonoscopy History of appendectomy Past Anesthesia History No Hx of Anesthesia Complications and No Family Hx of Anesthesia Complications History of PONV No Hx of PONV and No Hx of Motion Sickness Social History Smoking Status: Never smoker Do You Dip or Chew Tobacco: No Hx Alcohol Use: No alcohol intake frequency: holidays/special occasions only Hx Substance Use: No Physical Exam Vital Signs Last Vital Signs Temp 36.6 C 02/05/24 10:23 Pulse 73 02/05/24 10:23 Resp 16 02/05/24 10:23 BP 177/88 H 02/05/24 10:23 Pulse Ox 98 02/05/24 10:23 O2 Del Method Room Air 02/05/24 10:23 Constitutional no acute distress ENMT Mouth: no dentition abnormality Thyromental Distance: > or= 3.5 Finger Breadths Mallampati Class: III Neck normal visual inspection Respiratory normal respiratory effort; no respiratory distress Auscultation: lungs clear to auscultation bilaterally Cardiovascular Rate/Rhythm: regular rate and regular rhythm Heart Sounds: no murmur Musculoskeletal Spine: normal cervical ROM Psychiatric Orientation: alert and oriented x 3 Testing Laboratory Results 02/05/24 07:17 02/05/24 07:17 Urine Color Yellow 02/03/24 05:49 Urine Appearance Clear (Clear) 02/03/24 05:49 Urine pH 6.5 (4.5-7.5) 02/03/24 05:49 Ur Specific [place] 1.017 (1.000-1.030) 02/03/24 05:49 Urine Protein Negative (Negative) 02/03/24 05:49 Urine Glucose (UA) Negative (Negative) 02/03/24 05:49 Urine Ketones Negative (Negative) 02/03/24 05:49 Urine Nitrite Negative (Negative) 02/03/24 05:49 Ur Leukocyte Esterase 1+ (Negative) H 02/03/24 05:49 Urine WBC (Auto) 0-5 /hpf (0-5) 02/03/24 05:49 Urine RBC (Auto) 0-2 /hpf (0-2) 02/03/24 05:49 U Hyaline Cast (Auto) 0-2 /lpf (0-2) 02/03/24 05:49 U Epithel Cells (Auto) 0-2 /hpf (0-2) 02/03/24 05:49 Urine Bacteria (Auto) None Seen (None Seen) 02/03/24 05:49 02/03/24 05:49 Urine Culture - Final Urine,Clean Catch More than three types of organisms present, all low counts mixed probable skin max. No further identifications or sensitivities to follow. Electrocardiogram Findings: + NSR @ Day of Procedure Evaluation. Date of Surgery February 05, 2024 Height/Weight Height: 5 ft 5 in Weight: 57.606 kg Vital Signs Last Vital Signs Temp 36.6 C 02/05/24 10:23 Pulse 73 02/05/24 10:23 Resp 16 02/05/24 10:23 BP 177/88 H 02/05/24 10:23 Pulse Ox 98 02/05/24 10:23 O2 Del Method Room Air 02/05/24 10:23 Allergies Allergy/AdvReac Type Severity Reaction Status Date / Time No Known Allergies Allergy Verified 01/31/24 10:33 Medications Home Medications Medication Instructions Recorded Confirmed Last Taken multivitamin 1 tab PO DAILY 11/10/21 02/03/24 01/22/24 probiotic capsule 1 cap PO DAILY 01/31/24 02/03/24 Unknown Active Medications Generic Name Dose Route Start Last Admin Trade Name Freq PRN Reason Stop Dose Admin Famotidine 20 mg in 5 mls @ 2.5 mls/min 02/03/24 10:15 02/05/24 08:06 Pepcid 20mg Iv Push IV 03/04/24 10:14 2.5 mls/min Q12 JOHANNY Administration Sodium Chloride 500 mls @ 15 mls/hr 02/05/24 07:30 02/05/24 10:25 Nss IV 02/06/24 07:29 15 mls/hr .Q24H JOHANNY Administration Lactobacillus Acidophilus 1,250 mg 02/04/24 09:00 02/05/24 08:03 Advanced Probiotic 625 Mg Capsule PO 03/05/24 08:59 Not Given DAILY JOHANNY Multivitamins 1 tab 02/03/24 10:00 02/05/24 08:03 Multivitamin Tab PO 03/04/24 09:59 Not Given QAM JOHANNY Senna/Docusate Sodium 1 tab 02/03/24 10:15 02/05/24 08:03 Docusate Sodium/Senna 50/8.6mg Tab PO 03/04/24 10:14 Not Given Q12 JOHANNY Past Anesthesia History No Hx of Anesthesia Complications and No Family Hx of Anesthesia Complications History of PONV No Hx of PONV and No Hx of Motion Sickness NPO Date Last Intake of Fluids: 02/04/24 Time Last Intake of Fluids: 23:00 Date Last Intake of Solids: 02/04/24 Time Last Intake of Solids: 23:00 Home Medications Home Medications Medication Instructions Recorded Confirmed Last Taken multivitamin 1 tab PO DAILY 11/10/21 02/03/24 01/22/24 probiotic capsule 1 cap PO DAILY 01/31/24 02/03/24 Unknown Active Medications Generic Name Dose Route Start Last Admin Trade Name Freq PRN Reason Stop Dose Admin Famotidine 20 mg in 5 mls @ 2.5 mls/min 02/03/24 10:15 02/05/24 08:06 Pepcid 20mg Iv Push IV 03/04/24 10:14 2.5 mls/min Q12 JOHANNY Administration Sodium Chloride 500 mls @ 15 mls/hr 02/05/24 07:30 02/05/24 10:25 Nss IV 02/06/24 07:29 15 mls/hr .Q24H JOHANNY Administration Lactobacillus Acidophilus 1,250 mg 02/04/24 09:00 02/05/24 08:03 Advanced Probiotic 625 Mg Capsule PO 03/05/24 08:59 Not Given DAILY JOHANNY Multivitamins 1 tab 02/03/24 10:00 02/05/24 08:03 Multivitamin Tab PO 03/04/24 09:59 Not Given QAM JOHANNY Senna/Docusate Sodium 1 tab 02/03/24 10:15 02/05/24 08:03 Docusate Sodium/Senna 50/8.6mg Tab PO 03/04/24 10:14 Not Given Q12 JOHANNY Exercise / Class Metabolic Activity Metabolic Activity: II 4-5 Yardwork/Stairs/Walk up hill Physical Exam Constitutional: no acute distress Mouth: no dentition abnormality Thyromental Distance: > or= 3.5 Finger Breadths Mallampati Class: III Neck: + visual inspection normal Respiratory: + respiratory effort normal and + clear to auscultation bilaterally; no respiratory distress Cardiovascular: + regular rate and + regular rhythm; no murmur Musculoskeletal: no limited cervical ROM Psychiatric: + alert and + oriented x 3 ASA ASA2 Proposed Anesthesia Proposed Anesthesia: MAC Risk / Benefits Reviewed With: PT / POA / Parent / Guardian, Accepts Plan and Informed Consent Obtained
--- NOTE | 2024-02-05 11:22 | GI REPORT ---
[facility] Patient: PRAVEEN WINKLER : 1945 Sex at : Female Age: 78 Years Procedure: Upper GI endoscopy Date: 02/05/2024 Attending Physician: Laith Morel MD Referring MD: Referred Self; Fede Hilton M.d. Indications: - Nausea Medications: - Monitored Anesthesia Care Complications: - No immediate complications. Procedure: - Prior to the procedure, a History and Physical was performed, and patient medications and allergies were reviewed. The patient's tolerance of previous anesthesia was also reviewed. The risks and benefits of the procedure and the sedation options and risks were discussed with the patient. All questions were answered, and informed consent was obtained. [Anticoagulant Agents] [Days Prior to Procedure]. [ASA Grade]. After reviewing the risks and benefits, the patient was deemed in satisfactory condition to undergo the procedure. - The egd scope was introduced through the mouth and advanced to the second part of the duodenum. - The upper GI endoscopy was accomplished without difficulty. - The patient tolerated the procedure well. Findings: - The examined esophagus was normal. - The whole stomach appeared normal. Biopsies were taken with a cold forceps for Helicobacter pylori testing. - The examined duodenum was normal. Impression: - Normal esophagus. - Normal stomach. Biopsied. - Normal examined duodenum. Recommendation: - Resume previous diet. - Patient has a contact number available for emergencies. The signs and symptoms of potential delayed complications were discussed with the patient. Return to normal activities tomorrow. Written discharge instructions were provided to the patient. Procedure Code(s): - 95678, Esophagogastroduodenoscopy, flexible, transoral; with biopsy, single or multiple Diagnosis Code(s): - R11.0, Nausea CPT(R) - 2022 copyright [employer]. All Rights Reserved. The CPT codes, CCI edits and ICD codes generated are intended as suggestions and were generated based on input data. These codes are preliminary and upon steamtable attendant railroad review may be revised to meet current compliance and payer requirements. The provider is responsible for the final determination of appropriate codes, and modifiers. Laith Morel MD This document has been electronically signed. Note Initiated:02/05/2024 Note Completed:02/05/2024 11:21 AM \\[id number]
[2024-02-05] MEDS: PROPOFOL IV EMULSION 10 MG/ML 20 ML VIAL IV ONE (12:04)
[2024-02-05] MEDS: LIDOCAINE 2% 2 ML VIAL/AMP(20MG/ML) INFIL ONE ×2 (12:04)
[2024-02-05 12:54] VITALS: RESP 17; TEMP 97.3; O2SAT 99
--- NOTE | 2024-02-05 13:12 | Anesthesiology Progress Note ---
Date of Service February 05, 2024 Anesthesia Post Procedure Vital Signs Vital Signs: Temp Pulse Resp BP BP Pulse Ox O2 Del Method 02/05/24 12:53 36.3 C L 65 17 158/83 H 99 Room Air 02/05/24 12:09 36.5 C 65 15 161/81 H 98 Room Air 02/05/24 11:52 62 16 148/88 H 97 Room Air 02/05/24 11:37 63 16 133/84 96 Room Air 02/05/24 11:22 73 16 114/77 98 Room Air 02/05/24 10:23 36.6 C 73 16 177/88 H 98 Room Air 02/05/24 08:21 36.8 C 73 18 126/79 95 Room Air 02/04/24 21:24 36.6 C 61 14 169/89 H 97 Room Air 02/04/24 15:22 36.5 C 72 16 141/86 H 92 Room Air Pain Intensity Back: Pain Intensity: 0 Transfer of Care Handoff Completed per policy Notes Mental Status: alert / awake / arousable and participated in evaluation Nausea / Vomiting: adequately controlled Pain: adequately controlled Airway Patency, RR, SpO2: stable & adequate BP & HR: stable & adequate Hydration State: stable & adequate Anesthetic Complications: no major complications apparent and Pt Satisfied with anesthetic care
[2024-02-05 15:23] VITALS: BP 141/86; PULSE 67
[2024-02-06 02:02] LABS: IgA Serum 66 mg/dL (70-320); Tis Trans IgA <1.0 U/mL
[2024-02-06 09:05] LABS: Gliadin(Deminated)Ab, IgG <1.0 U/mL; Transglutam, Tissue IgG Reflex <1.0 U/mL
[2024-02-06 20:56] LABS: Babesia microti DNA Not Detected (Not Detected)
== END 2024-02-05 16:00 | disposition home or self-care (01) ==
LOC: ED 05:21 → 3N 05:21 → SUATTDRO 07:27 → 3N 09:09